=== PATIENT | male | born 1960 | race Caucasian/White ===

== ENCOUNTER 2017-10-03 13:10 | Inpatient (IN) | payer SELFPAY ==
[2017-10-03] MEDS ORDERED: MORPHINE SULFATE 10 MG/ML INJ IV ONE (14:16)
--- NOTE | 2017-10-03 14:18 | RADIOLOGY REPORT (SQ) ---
EXAM DESCRIPTION: RIBS RIGHT W/PA CHEST COMPLETED DATE/TIME: 10/03/2017 1:59 pm REASON FOR STUDY: fall with rib pain COMPARISON: None. TECHNIQUE: Frontal view of the chest and additional views of the right ribs acquired. NUMBER OF VIEWS: Four views LIMITATIONS: None. FINDINGS: FRONTAL CXR: No pneumothorax. No pleural effusion. No atelectasis or infiltrates. Nodul arity in the right lung with scarring in the right upper lobe. RIBS: There appear to be nondisplaced fractures of the right 5th, 6th, 7th, and 8th ribs. OTHER: No other significant finding. IMPRESSION: No pneumothorax. Rib fractures. Pulmonary findings as described. COMMENT: SITE OF TRAUMA/COMPLAINT MARKED/STAMP COMPLETED: No TECHNICAL DOCUMENTATION: JOB ID: [id number] [employer]- All Rights Reserved
[2017-10-03 14:19] LABS: ABSOLUTE BASOPHILS # (AUTO) 0.1 10^3/uL (0.0-0.2); ABSOLUTE EOSINOPHILS # (AUTO) 0.2 10^3/uL (0.0-0.6); ABSOLUTE LYMPHOCYTES (AUTO) 1.2 10^3/uL (0.5-4.7); ABSOLUTE MONOCYTES (AUTO) 1.8 10^3/uL (0.1-1.4); ABSOLUTE NEUT (AUTO) 21.1 10^3/uL (1.7-8.2); BASOPHILS % (AUTO) 0.5 % (0-2); EOSINOPHILS % (AUTO) 0.9 % (0-6); HEMOGLOBIN 15.9 g/dL (13.5-17.0); MEAN CORPUSCULAR HEMOGLOBIN 30.4 pg (27.0-33.4); MEAN CORPUSCULAR HGB CONC 33.8 g/dL (32.0-36.0); MEAN CORPUSCULAR VOLUME 90 fl (80-97); MONOCYTES % (AUTO) 7.5 % (3-13); PLATELET COUNT 653 10^3/uL (150-450); RED BLOOD COUNT 5.23 10^6/uL (4.35-5.55); RED CELL DISTRIBUTION WIDTH 16.6 % (11.5-14.0); SEGMENTED NEUTROPHILS % (AUTO) 86.1 % (42-78); TOTAL CELLS COUNTED % (AUTO) 100 %; WHITE BLOOD COUNT 24.5 10^3/uL (4.0-10.5)
[2017-10-03] MEDS ORDERED: HYDROMORPHONE HCL INJ/PF 2 MG/ML AMPULE IV ONE ×2 (14:51→16:55)
--- NOTE | 2017-10-03 14:54 | ER Document Report ---
ED General - General Chief Complaint: Fall Injury Stated Complaint: FALL/RIB PAIN Time Seen by Provider: 10/03/17 13:48 Mode of Arrival: Ambulatory Information source: Patient Notes: 57 yr old male presents with complaitns of right sided rib pain after a fall 5 days ago. pt notes difficulty breathing, productive cough. TRAVEL OUTSIDE OF THE [place] IN LAST 30 DAYS: No - HPI Onset: Last week Onset/Duration: Persistent Quality of pain: Sharp Severity: Moderate Pain Level: 2 Associated symptoms: Productive cough, Shortness of breath Exacerbated by: Deep breathing Relieved by: Denies Similar symptoms previously: No Recently seen / treated by doctor: No - Related Data Allergies/Adverse Reactions: No Known Allergies Allergy (Unverified 05/19/16 23:21) Home Medications: Current Home Medications No Home Medications 10/03/17 [History] Past Medical History - Social History Smoking Status: Current Every Day Smoker Cigarette use (# per day): Yes Chew tobacco use (# tins/day): No Smoking Education Provided: Yes - Patient counselled regarding cessation for 4 minutes Frequency of alcohol use: Occasional Drug Abuse: None Family History: Reviewed & Not Pertinent Patient has suicidal ideation: No Patient has homicidal ideation: No Renal/ Medical History: Denies: Hx Peritoneal Dialysis Past Surgical History: Reports: Hx Orthopedic Surgery - Ankle - Immunizations Immunizations up to date: No Hx Diphtheria, Pertussis, Tetanus Vaccination: No Review of Systems - Review of Systems Notes: REVIEW OF SYSTEMS: CONSTITUTIONAL : Denies fever, chills, or sweats. Denies recent illness. EENT: Denies eye, ear, throat, or mouth pain or symptoms. Denies nasal or sinus congestion or discharge. Denies throat, tongue, or mouth swelling or difficulty swallowing. CARDIOVASCULAR: Denies chest pain. Denies palpitations or racing or irregular heart beat. Denies ankle edema. RESPIRATORY: Admits to productive cough shortness of breath GASTROINTESTINAL: Denies abdominal pain or distention. Denies nausea, vomiting , or diarrhea. Denies blood in vomitus, stools, or per rectum. Denies black, tarry stools. Denies constipation. GENITOURINARY: Denies difficulty urinating, painful urination, burning, frequency, blood in urine, or discharge. MUSCULOSKELETAL: Denies back or neck pain or stiffness. Denies joint pain or swelling. SKIN: Denies rash, lesions or sores. HEMATOLOGIC : Denies easy bruising or bleeding. LYMPHATIC: Denies swollen, enlarged glands. NEUROLOGICAL: Denies confusion or altered mental status. Denies passing out or loss of consciousness. Denies dizziness or lightheadedness. Denies headache. Denies weakness or paralysis or loss of use of either side. Denies problems with gait or speech. Denies sensory loss, numbness, or tingling. Denies seizures. PSYCHIATRIC: Denies anxiety or stress. Denies depression, suicidal ideation, or homicidal ideation. ALL OTHER SYSTEMS REVIEWED AND NEGATIVE. Dictation was performed using [employer] voice recognition software PHYSICAL EXAMINATION: GENERAL: Well-appearing, well-nourished and in no acute distress. HEAD: Atraumatic, normocephalic. EYES: Pupils equal round and reactive to light, extraocular movements intact, sclera anicteric, conjunctiva are normal. ENT: Nares patent, oropharynx clear without exudates. Moist mucous membranes. NECK: Normal range of motion, supple without lymphadenopathy LUNGS: Coarse rhonchi all throughout HEART: Regular rate and rhythm without murmurs ABDOMEN: Soft, nontender, nondistended abdomen. No guarding, no rebound. No masses appreciated. Musculoskeletal: Normal range of motion, no pitting or edema. No cyanosis. NEUROLOGICAL: Cranial nerves grossly intact. Normal speech, normal gait. Normal sensory, motor exams PSYCH: Normal mood, normal affect. SKIN: Warm, Dry, normal turgor, no rashes or lesions noted. Physical Exam - Vital signs Vitals: Temp Pulse Resp BP Pulse Ox 98.1 F 125 H 20 153/102 H 96 10/03/17 13:17 10/03/17 13:17 10/03/17 13:17 10/03/17 13:17 10/03/17 13:17 Course - Re-evaluation Re-evalutation: 10/03/17 20:33 Patient's white count is noted to be significantly elevated 24.5, a chest x-ray was performed, x-rays consistent with fractures, I did send for CT which does note multiple fractures however is also a cavitary lesion as well as pneumonia. Patient started on antibiotics will admit, isolation precautions 10/03/17 20:34 - Vital Signs Vital signs: Temp Pulse Resp BP Pulse Ox 98.1 F 125 H 13 128/86 H 98 10/03/17 13:17 10/03/17 13:17 10/03/17 18:01 10/03/17 17:01 10/03/17 18:01 - Laboratory Result Diagrams: 10/03/17 14:10 10/03/17 14:10 Laboratory results interpreted by me: 10/03/17 10/03/17 14:10 14:10 WBC 24.5 H RDW 16.6 H Plt Count 653 H Seg Neutrophils % 86.1 H Lymphocytes % 5.0 L Absolute Neutrophils 21.1 H Absolute Monocytes 1.8 H BUN 23 H Alkaline Phosphatase 131 H - Diagnostic Test Radiology reviewed: Image reviewed, Reports reviewed Discharge - Discharge Clinical Impression: Ribs, multiple fractures Qualifiers: Encounter type: initial encounter Fracture type: closed Laterality: right Qualified Code(s): S22.41XA - Multiple fractures of ribs, right side, initial encounter for closed fracture Pneumonia Qualifiers: Pneumonia type: due to unspecified organism Laterality: right Lung location: lower lobe of lung Qualified Code(s): J18.1 - Lobar pneumonia, unspecified organism Condition: Fair Disposition: ADMITTED INPATIENT Admitting Provider: Hospitalist Unit Admitted: Telemetry
[2017-10-03 15:04] LABS: ALANINE AMINOTRANSFERASE 72 U/L (21-72); ALKALINE PHOSPHATASE 131 U/L (38-126); ANION GAP 14 (5-19); ASPARTATE AMINO TRANSFERASE 53 U/L (17-59); BILIRUBIN,DIRECT 0.3 mg/dL (0.0-0.4); BILIRUBIN,TOTAL 0.8 mg/dL (0.2-1.3); BLOOD UREA NITROGEN 23 mg/dL (7-20); CALCIUM 10.1 mg/dL (8.4-10.2); CARBON DIOXIDE 26 mmol/L (22-30); CHLORIDE 101 mmol/L (98-107); GLUCOSE 96 mg/dL (75-110); POTASSIUM 4.4 mmol/L (3.6-5.0); SODIUM 141.2 mmol/L (137-145); TOTAL PROTEIN 6.9 g/dL (6.3-8.2)
--- NOTE | 2017-10-03 16:22 | RADIOLOGY REPORT (SQ) ---
EXAM DESCRIPTION: CT CHEST WITH COMPLETED DATE/TIME: 10/03/2017 4:00 pm REASON FOR STUDY: fall rib innjury COMPARISON: Right rib detail films and PA chest 10/03/2017 TECHNIQUE: CT scan of the chest performed using helical scanning technique with dynamic intravenous contrast injection. Images reviewed with lung, soft tissue and bone windows. Reconstructed coronal and sagittal MPR images reviewed. All images stored on PACS. All CT scanners at this facility use dose modulation, iterative reconstruction, and/or weight based d osing when appropriate to reduce radiation dose to as low as reasonably achievable (ALARA). [facility]: Dose Right [facility]: CareDose [facility]: Dose Right [facility]: Teradose 4D [facility]: NextPage CONTRAST TYPE AND DOSE: contrast/concentration: Isovue 370.00 mg/ml; Total Contrast Delivered: 80.0 ml; Total Saline Delivered: 55.1 ml RENAL FUNCTION: Creatinine 0.65 RADIATION DOSE: CT Rad equipment meets quality standard of care and radiation dose reduction techniq ues were employed. CTDIvol: 5.0 mGy. DLP: 212 mGy-cm. . LIMITATIONS: None. FINDINGS: LUNGS AND PLEURA: There is patchy airspace disease in the right posterior lower lobe worri some for pulmonary contusion. This is deep to multiple posterior right lower rib fractures. No righ t-sided pneumothorax or pleural effusion. A thick walled irregular cavity is present at the right lung apex measuring about 6 cm in greatest cr aniocaudad diameter. There the arm multiple noncalcified nodules throughout the right upper lobe rig ht middle lobe and lingula. Multiple nodules are present in the superior segment right lower lobe, t he largest of which measures 3 cm diameter on coronal image 48. There is centrilobular emphysema upper lobe predominant. HILAR AND MEDIASTINAL STRUCTURES: No mediastinal adenopathy, no hilar adenopathy HEART AND VASCULAR STRUCTURES: The ascending aorta is 4 cm in diameter. Left ventricle thick walled, minimal aortic valve calcification. Correlate clinically for aortic stenosis and poststenotic ascen ding aortic dilatation. No CT evidence of thoracic aortic dissection or pulmonary embolus to the arjun n, or right or left pulmonary arteries. HARDWARE: None in the chest. UPPER ABDOMEN: No significant findings. Limited exam. THYROID AND OTHER SOFT TISSUES: No masses. No adenopathy. BONES: Acute nondisplaced posterior right through 11th rib fractures OTHER: Report called to Dr. Ferguson in the emergency room IMPRESSION: Acute right posterior 6th through 11th rib fractures. Adjacent right lower lobe airspac e disease likely pulmonary contusion. No pneumothorax or pleural effusion Thick walled cavitary lesion in the right lung apex with multiple other smaller cavitary and non cavi tary lung nodules bilaterally. Differential is ARJUN versus MTB versus sarcoid. Enlarged ascending thoracic aorta with thick wall left ventricle, question aortic stenosis Centrilobular emphysema in the upper lobes bilaterally TECHNICAL DOCUMENTATION: JOB ID: [id number] Quality ID # [id number]: Final reports with documentation of one or more dose reduction techniques (e.g., Au tomated exposure control, adjustment of the mA and/or kV according to patient size, use of iterative reconstruction technique) 2010 [employer]- All Rights Reserved
[2017-10-03] MEDS ORDERED: LEVOFLOXACIN 750 MG/D5W RTU 750 MG/150 ML RTUPB IV ONE (16:56)
[2017-10-03] MEDS ORDERED: NORMAL SALINE 1000 ML 1,000 ML IV PRN (17:08)
[2017-10-03] MEDS ORDERED: TUBERCULIN,PURIF.PROT.DERIV. 5 TU/0.1 ML TEST 1 ML VIAL ID ONE ×2 (18:30→19:00)
[2017-10-03] MEDS: MORPHINE SULFATE 10 MG/ML INJ IV PRN ×2 (19:09→23:34)
[2017-10-03] MEDS: OXYCODONE HCL IR 5 MG TABLET PO SCH (19:09)
[2017-10-03] MEDS: ACETAMINOPHEN 325 MG TABLET PO PRN (20:47)
[2017-10-03] MEDS: GABAPENTIN 300 MG CAPSULE PO SCH (23:33)
[2017-10-04] MEDS: OXYCODONE HCL IR 5 MG TABLET PO SCH ×4 (00:45→17:06)
[2017-10-04] MEDS: MORPHINE SULFATE 10 MG/ML INJ IV PRN ×4 (03:41→21:39)
[2017-10-04] MEDS: TRAMADOL HCL 50 MG TABLET PO SCH ×4 (04:00→21:39)
[2017-10-04] MEDS: LANSOPRAZOLE 30 MG TAB.RAP.DR PO SCH (05:27)
[2017-10-04] MEDS: GABAPENTIN 300 MG CAPSULE PO SCH ×3 (05:28→21:39)
[2017-10-04 06:27] LABS: ABSOLUTE BASOPHILS # (AUTO) 0.1 10^3/uL (0.0-0.2); ABSOLUTE EOSINOPHILS # (AUTO) 0.3 10^3/uL (0.0-0.6); ABSOLUTE LYMPHOCYTES (AUTO) 1.2 10^3/uL (0.5-4.7); ABSOLUTE MONOCYTES (AUTO) 1.6 10^3/uL (0.1-1.4); ABSOLUTE NEUT (AUTO) 14.2 10^3/uL (1.7-8.2); BASOPHILS % (AUTO) 0.3 % (0-2); EOSINOPHILS % (AUTO) 1.7 % (0-6); HEMATOCRIT 40.6 % (37.9-51.0); MEAN CORPUSCULAR HEMOGLOBIN 30.6 pg (27.0-33.4); MEAN CORPUSCULAR HGB CONC 33.6 g/dL (32.0-36.0); MEAN CORPUSCULAR VOLUME 91 fl (80-97); MONOCYTES % (AUTO) 9.4 % (3-13); PLATELET COUNT 537 10^3/uL (150-450); RED BLOOD COUNT 4.46 10^6/uL (4.35-5.55); RED CELL DISTRIBUTION WIDTH 16.7 % (11.5-14.0); SEGMENTED NEUTROPHILS % (AUTO) 81.6 % (42-78); TOTAL CELLS COUNTED % (AUTO) 100 %; WHITE BLOOD COUNT 17.3 10^3/uL (4.0-10.5)
[2017-10-04 06:35] LABS: HEMOGLOBIN 13.6 g/dL (13.5-17.0)
[2017-10-04 06:39] LABS: ANION GAP 8 (5-19); BLOOD UREA NITROGEN 13 mg/dL (7-20); CALCIUM 8.8 mg/dL (8.4-10.2); CARBON DIOXIDE 28 mmol/L (22-30); CHLORIDE 99 mmol/L (98-107); GLUCOSE 123 mg/dL (75-110); MAGNESIUM 1.6 mg/dL (1.6-2.3); SODIUM 135.1 mmol/L (137-145)
[2017-10-04 08:06] LABS: S. PNEUMONIAE AG NEGATIVE (NEGATIVE)
[2017-10-04] MEDS: LEVOFLOXACIN 750 MG/D5W RTU 750 MG/150 ML RTUPB IV SCH (17:06)
[2017-10-05] MEDS: OXYCODONE HCL IR 5 MG TABLET PO SCH ×4 (00:01→17:56)
[2017-10-05] MEDS: NORMAL SALINE 1000 ML 1,000 ML IV PRN (01:45)
[2017-10-05] MEDS: MORPHINE SULFATE 10 MG/ML INJ IV PRN ×4 (01:45→22:03)
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
[2017-10-05] MEDS: GABAPENTIN 300 MG CAPSULE PO SCH ×3 (05:54→22:03)
[2017-10-05] MEDS: LANSOPRAZOLE 30 MG TAB.RAP.DR PO SCH (05:54)
[2017-10-05 07:36] LABS: ABSOLUTE BASOPHILS # (AUTO) 0.1 10^3/uL (0.0-0.2); ABSOLUTE EOSINOPHILS # (AUTO) 0.3 10^3/uL (0.0-0.6); ABSOLUTE MONOCYTES (AUTO) 1.4 10^3/uL (0.1-1.4); ABSOLUTE NEUT (AUTO) 7.7 10^3/uL (1.7-8.2); BASOPHILS % (AUTO) 0.5 % (0-2); EOSINOPHILS % (AUTO) 3.1 % (0-6); HEMATOCRIT 38.1 % (37.9-51.0); LYMPHOCYTES % (AUTO) 9.7 % (13-45); MEAN CORPUSCULAR HEMOGLOBIN 30.9 pg (27.0-33.4); MEAN CORPUSCULAR HGB CONC 34.1 g/dL (32.0-36.0); MEAN CORPUSCULAR VOLUME 91 fl (80-97); MONOCYTES % (AUTO) 13.4 % (3-13); PLATELET COUNT 463 10^3/uL (150-450); RED CELL DISTRIBUTION WIDTH 16.5 % (11.5-14.0); SEGMENTED NEUTROPHILS % (AUTO) 73.3 % (42-78); TOTAL CELLS COUNTED % (AUTO) 100 %; WHITE BLOOD COUNT 10.5 10^3/uL (4.0-10.5)
[2017-10-05 08:05] LABS: ANION GAP 8 (5-19); BLOOD UREA NITROGEN 7 mg/dL (7-20); CALCIUM 8.4 mg/dL (8.4-10.2); CARBON DIOXIDE 29 mmol/L (22-30); CHLORIDE 100 mmol/L (98-107); GLUCOSE 88 mg/dL (75-110); POTASSIUM 3.6 mmol/L (3.6-5.0)
[2017-10-05] MEDS ORDERED: DIAZEPAM 2 MG TABLET PO SCH (10:00)
--- NOTE | 2017-10-05 11:28 | PDOC PROGRESS REPORT ---
Subjective Progress Note for:: 10/05/17 Subjective:: Pt states that he is doing ok. Nursing reports that pt told her he drinks a lot. Pt states that he wants to get out of here soon. Nursing states that pt' s PPD in Pending final read. Reason For Visit: PNEUMONIA, MULTIPLE RIB FRACTURES, LUNG NODULES Physical Exam Vital Signs: Temp Pulse Resp BP Pulse Ox 98.9 F 100 20 145/81 H 93 10/05/17 08:00 10/05/17 08:00 10/05/17 08:00 10/05/17 08:00 10/05/17 08:00 Intake & Output 10/04/17 10/05/17 10/06/17 06:59 06:59 06:59 Intake Total 948 2538 Output Total 350 1075 Balance 598 1463 Weight 47.1 kg 48.6 kg General appearance: PRESENT: no acute distress, cooperative, disheveled, thin Head exam: PRESENT: atraumatic, normocephalic Eye exam: PRESENT: conjunctival injection, EOMI Ear exam: PRESENT: normal external ear exam Mouth exam: PRESENT: moist, tongue midline Neck exam: ABSENT: carotid bruit, JVD, lymphadenopathy, thyromegaly Respiratory exam: PRESENT: other - + coarse breath sounds heard diffusely, No wheezing, no accessory muscle use. Cardiovascular exam: PRESENT: RRR. ABSENT: diastolic murmur, rubs, systolic murmur Pulses: PRESENT: normal dorsalis pedis pul Vascular exam: PRESENT: normal capillary refill GI/Abdominal exam: PRESENT: normal bowel sounds, soft. ABSENT: distended, guarding, mass, organolmegaly, rebound, tenderness Rectal exam: PRESENT: deferred Extremities exam: PRESENT: full ROM. ABSENT: calf tenderness, clubbing, pedal edema Neurological exam: PRESENT: alert, awake, oriented to person, oriented to place , oriented to time, oriented to situation, CN II-XII grossly intact. ABSENT: motor sensory deficit Psychiatric exam: PRESENT: flat affect, normal mood. ABSENT: homicidal ideation , suicidal ideation Skin exam: PRESENT: abrasion, other - pt with abrasions on face Results Laboratory Results: 10/05/17 07:09 10/05/17 07:09 10/05/17 10/05/17 07:09 07:09 WBC 10.5 RBC 4.20 L Hgb 13.0 L Hct 38.1 MCV 91 MCH 30.9 MCHC 34.1 RDW 16.5 H Plt Count 463 H Seg Neutrophils % 73.3 Lymphocytes % 9.7 L Monocytes % 13.4 H Eosinophils % 3.1 Basophils % 0.5 Absolute Neutrophils 7.7 Absolute Lymphocytes 1.0 Absolute Monocytes 1.4 Absolute Eosinophils 0.3 Absolute Basophils 0.1 Sodium 137.0 Potassium 3.6 Chloride 100 Carbon Dioxide 29 Anion Gap 8 BUN 7 Creatinine 0.47 L Est GFR ( Amer) > 60 Est GFR (Non-Af Amer) > 60 Glucose 88 Calcium 8.4 Magnesium 2.0 Impressions: Ribs w/Chest X-Ray 10/03/17 00:00 IMPRESSION: No pneumothorax. Rib fractures. Pulmonary findings as described. Chest CT 10/03/17 13:52 IMPRESSION: Acute right posterior 6th through 11th rib fractures. Adjacent right lower lobe airspace disease likely pulmonary contusion. No pneumothorax or pleural effusion Thick walled cavitary lesion in the right lung apex with multiple other smaller cavitary and non cavitary lung nodules bilaterally. Differential is ARJUN versus MTB versus sarcoid. Enlarged ascending thoracic aorta with thick wall left ventricle, question aortic stenosis Centrilobular emphysema in the upper lobes bilaterally Assessment & Plan - Diagnosis (1) Pulmonary cavitary lesion Is this a current diagnosis for this admission?: Yes Plan: Right lower lobe of Lung: Will continue current treatment plan. Pt's WBC are trending down. PPD pending. Pt's AFB's have been negative. (2) Pneumonia Qualifiers: Pneumonia type: due to unspecified organism Laterality: right Lung location: lower lobe of lung Qualified Code(s): J18.1 - Lobar pneumonia, unspecified organism Is this a current diagnosis for this admission?: Yes Plan: Will continue pt on current treatment. (3) Fall Is this a current diagnosis for this admission?: Yes Plan: Supportive care. Will have PT/OT evaluate pt. (4) Moderate protein-calorie malnutrition Is this a current diagnosis for this admission?: Yes Plan: Will continue supplemental drinks and encourage better PO intake. Will check Phos and Magnesium. (5) Alcohol use Is this a current diagnosis for this admission?: Yes Plan: Ativan PRN. Will place on Thiamine and folate. Will check Phos level due to malnutrition. (6) Hyponatremia Is this a current diagnosis for this admission?: Yes Plan: resolved. (7) Ribs, multiple fractures Qualifiers: Encounter type: initial encounter Fracture type: closed Laterality: right Qualified Code(s): S22.41XA - Multiple fractures of ribs, right side, initial encounter for closed fracture Is this a current diagnosis for this admission?: Yes Plan: Supportive care. Recommended abd electric organ checker but pt states that he has no and it did not help. (8) Tobacco abuse Is this a current diagnosis for this admission?: Yes Plan: Nicotine patch - Time Time Spent with patient: 15-24 minutes
[2017-10-05] MEDS: MAGNESIUM OXIDE 400 MG TABLET PO SCH ×2 (11:42→17:56)
[2017-10-05] MEDS: NICOTINE 21 MG/24 HR PATCH.TD24 TD SCH (11:43)
[2017-10-05] MEDS ORDERED: FOLIC ACID 1 MG TABLET PO ONE (13:00)
[2017-10-05] MEDS ORDERED: THIAMINE HCL 100 MG TABLET PO ONE (13:00)
--- NOTE | 2017-10-05 14:12 | PDOC PROGRESS REPORT ---
Subjective Progress Note for:: 10/04/17 Subjective:: Patient presented with right rib pain found to have multiple rib fractures which he sustained after a fall. Patient being treated for pneumonia. Patient with R apex cavity lesion for which TB is being ruled out. Patient states he is doing alright but didn't want to speak. Reason For Visit: PNEUMONIA, MULTIPLE RIB FRACTURES, LUNG NODULES Physical Exam Vital Signs: Temp Pulse Resp BP Pulse Ox 98.0 F 100 18 126/89 H 92 10/04/17 19:59 10/04/17 19:59 10/04/17 19:59 10/04/17 19:59 10/04/17 19:59 Intake & Output 10/03/17 10/04/17 10/05/17 06:59 06:59 06:59 Intake Total 948 1464 Output Total 350 600 Balance 598 864 Weight 47.1 kg General appearance: PRESENT: no acute distress, disheveled, thin Head exam: PRESENT: normocephalic Eye exam: PRESENT: EOMI. ABSENT: scleral icterus Neck exam: ABSENT: carotid bruit, JVD, lymphadenopathy, thyromegaly Respiratory exam: PRESENT: clear to auscultation roz, decreased breath sounds. ABSENT: rales, rhonchi, unlabored, wheezes Cardiovascular exam: PRESENT: RRR. ABSENT: diastolic murmur, rubs, systolic murmur Vascular exam: PRESENT: normal capillary refill GI/Abdominal exam: PRESENT: normal bowel sounds, soft. ABSENT: distended, guarding, mass, organolmegaly, rebound, tenderness Rectal exam: PRESENT: deferred Extremities exam: PRESENT: full ROM. ABSENT: calf tenderness, clubbing, pedal edema Neurological exam: PRESENT: alert, awake, oriented to person, oriented to place , oriented to time, oriented to situation, CN II-XII grossly intact. ABSENT: motor sensory deficit Psychiatric exam: PRESENT: appropriate affect, normal mood. ABSENT: homicidal ideation, suicidal ideation Skin exam: PRESENT: dry, intact, warm. ABSENT: cyanosis, rash Results Laboratory Results: 10/04/17 05:49 10/04/17 05:49 10/04/17 10/04/17 05:49 05:49 WBC 17.3 H RBC 4.46 Hgb 13.6 D Hct 40.6 MCV 91 MCH 30.6 MCHC 33.6 RDW 16.7 H Plt Count 537 H Seg Neutrophils % 81.6 H Lymphocytes % 7.0 L Monocytes % 9.4 Eosinophils % 1.7 Basophils % 0.3 Absolute Neutrophils 14.2 H Absolute Lymphocytes 1.2 Absolute Monocytes 1.6 H Absolute Eosinophils 0.3 Absolute Basophils 0.1 Sodium 135.1 L Potassium 4.0 Chloride 99 Carbon Dioxide 28 Anion Gap 8 BUN 13 Creatinine 0.52 Est GFR ( Amer) > 60 Est GFR (Non-Af Amer) > 60 Glucose 123 H Calcium 8.8 Magnesium 1.6 Impressions: Ribs w/Chest X-Ray 10/03/17 00:00 IMPRESSION: No pneumothorax. Rib fractures. Pulmonary findings as described. Chest CT 10/03/17 13:52 IMPRESSION: Acute right posterior 6th through 11th rib fractures. Adjacent right lower lobe airspace disease likely pulmonary contusion. No pneumothorax or pleural effusion Thick walled cavitary lesion in the right lung apex with multiple other smaller cavitary and non cavitary lung nodules bilaterally. Differential is ARJUN versus MTB versus sarcoid. Enlarged ascending thoracic aorta with thick wall left ventricle, question aortic stenosis Centrilobular emphysema in the upper lobes bilaterally Assessment & Plan - Diagnosis (1) Hyponatremia Plan: Secondary to infection and or dehydration. Start on NS and follow. 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 Continue valium TID. Watch for signs of withdrawal. (3) Pneumonia Qualifiers: Pneumonia type: due to unspecified organism Laterality: right Lung location: lower lobe of lung Qualified Code(s): J18.1 - Lobar pneumonia, unspecified organism Plan: Right LL pneumonia was thought to be a pulmonary contusion however patient has leukocytosis 24,000. Leukocytosis trending down. Continue levaquin and follow WBC. (4) Pulmonary cavitary lesion Is this a current diagnosis for this admission?: Yes Plan: TB is being ruled out with 3 AFBs. PPD was placed. Patient history not consistent with TB but has to be ruled out. Patient also has lung nodules on the right. Patient seen by Dr. Tucker. Dr. Tucker did discuss possible bronch with patient. He would like patient to follow up as out patient. (5) Ribs, multiple fractures Qualifiers: Encounter type: initial encounter Fracture type: closed Laterality: right Qualified Code(s): S22.41XA - Multiple fractures of ribs, right side, initial encounter for closed fracture Is this a current diagnosis for this admission?: Yes Plan: Secondary to a fall patient fractured his right ribs 6-11. Informed patient the it will be painful and will take time to feel better. Continue morphine, NSAIDS and gabapentin. (6) Tobacco abuse Is this a current diagnosis for this admission?: Yes Plan: Counseling on smoking cessation and nicotine patch. (7) Thrombocytosis Is this a current diagnosis for this admission?: Yes Plan: Due to infection. Trending down. Will continue to monitor. - Time Time Spent with patient: 15-24 minutes Anticipated discharge: Home with Homehealth Within: Other - Inpatient Certification Medical Necessity: Need for Pain Control, Need for IV Antibiotics
[2017-10-05] MEDS: DIAZEPAM 2 MG TABLET PO SCH ×2 (14:20→22:03)
--- NOTE | 2017-10-05 16:43 | PDOC CONSULTATION ---
Consultation Consult Date: 10/04/17 Attending physician:: EMMETT ROSE Consult reason:: Rib fractures/dyspnea History of Present Illness Admission Date/PCP: 10/03/17 17:32 History of Present Illness: VICTORINO HENRIQUEZ is a 57 year old male with no know medical history as he does not follow with a doctor. Patient states that on FridaySeptember 28, he was walking outside down the steps which were wet. Patient slipped and fell. Patient immediately felt pain but did not come to the hospital immediately because he thought the pain would go away. The pain did not subside and he subsequently presented to the emergency room for evaluation. At that time was found that he had multiple rib fractures a right lower lobe scattered infiltrate that was suspicious of a pulmonary contusion paraseptal emphysema with some thick wall cyst it was felt that he may be a candidate for MTB or ARJUN. He denies nausea vomiting fevers chills rhinorrhea sore throat chest pain or edema. He denies shortness of breath or dyspnea on exertion really has a cough and he denies any hemoptysis his PPD status is unknown. No history of chronic lung disease as a child or adolescent. He admits to exposure to large amounts of smoke passively as a child. He is self smoked one half packs a day for the last 40 years and smoked up until the time of admission. 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 He has no pets denies any recent travel. He denies angina-like chest pain sleeps on one pillow no PND rare nocturnal cough no edema. He is unaware of any snoring, admits to restless sleep, nocturia 3, unrestful sleep and excessive daytime somnolence. Portions of this note were dictated during [facility] natural speaking voice recognition software. Variations in spelling and tvocabulary are possible and unintentional. Please notify the author if any discrepancies are noted.. Past Medical History Cardiac Medical History: Denies: Atrial Fibrillation, Congestive Heart Failure, Coronary Artery Disease, DVT, Myocardial Infarction, Heart Murmur Pulmonary Medical History: Denies: Asthma, Bronchitis, Intubation, Respiratory Failure EENT Medical History: Denies: Ears, Nose, Throat Neurological Medical History: Denies: Multiple Sclerosis, Seizures Endocrine Medical History: Denies: Diabetes Mellitus Type 1, Gestational Diabetes, Hyperthyroidism, Hypothyroidism Renal/ Medical History: Denies: Nephrolithiasis Malignancy Medical History: Reports: None GI Medical History: Reports: Gastroesophageal Reflux Disease Denies: Crohn's Disease, Hepatitis, Ulcerative Colitis Musculoskeltal Medical History: Denies: Fibromyalgia Skin Medical History: Denies: Psoriasis Psychiatric Medical History: Reports: Alcohol Dependency, Depression, Tobacco Dependency Traumatic Medical History: Denies: Traumatic Brain Injury Hematology: Denies: Sickle Cell Disease, Bleeding Tendencies Infectious Medical History: Denies: Hepatitis B, Hepatitis C Past Surgical History Past Surgical History: Reports: Orthopedic Surgery - Ankle Social History Information Source: Patient, [facility] Records Smoking Status: Current Every Day Smoker Cigarettes Packs Per Day: 10 Number of Years Smokin Last Time Smoked: 10/03/2017 Passive smoke exposure as: Both Frequency of Alcohol Use: Social Drugs: Marijuana Hx Prescription Drug Abuse: No Do you have pets?: No Have you had any respiratory illnesses as a child?: No Have you been exposed to any sick contacts recently?: No Have you had any recent respiratory illnesses?: No Have you travelled outside of [place] in the past 12 months?: No - Advance Directive Resuscitation Status: Full Code Family History Family History: Hypertension, Malignancy Parental Family History Reviewed: Yes Children Family History Reviewed: Yes Sibling(s) Family History Reviewed.: Yes Medication/Allergy Home Medications: No Home Medications 10/03/17 Allergies/Adverse Reactions: No Known Allergies Allergy (Unverified 05/19/16 23:21) Review of Systems Constitutional: ABSENT: anorexia, chills, fever(s), night sweats, weight gain, weight loss Eyes: ABSENT: visual disturbances Ears: ABSENT: hearing changes Nose, Mouth, and Throat: ABSENT: mouth pain, sore throat Cardiovascular: PRESENT: dyspnea on exertion. ABSENT: chest pain, edema, orthropnea, palpitations Respiratory: ABSENT: cough, hemoptysis Gastrointestinal: PRESENT: constipation, dysphagia. ABSENT: abdominal pain, bloating, coffee ground emesis, diarrhea, heartburn, hematemesis, hematochezia, melena, nausea, vomiting Genitourinary: PRESENT: nocturia. ABSENT: difficulty urinating, dysuria, hematuria Musculoskeletal: ABSENT: deformity, joint swelling Integumentary: ABSENT: pruritus, rash Neurological: ABSENT: abnormal gait, abnormal movements, abnormal speech, confusion, convulsions, dizziness, focal weakness, frequent falls, lack of coordination, memory loss Psychiatric: ABSENT: hallucinations, homidical ideation, suicidal ideation Endocrine: ABSENT: cold intolerance, flushing, heat intolerance, menstrual abnormalities, polydipsia, polyuria Hematologic/Lymphatic: ABSENT: easy bruising Physical Exam Vital Signs: Temp Pulse Resp BP Pulse Ox 98.1 F 100 16 132/74 H 94 10/04/17 07:48 10/04/17 07:48 10/04/17 07:48 10/04/17 07:48 10/04/17 07:48 Intake & Output 10/03/17 10/04/17 10/05/17 06:59 06:59 06:59 Intake Total 948 Output Total 350 Balance 598 Weight 47.1 kg General appearance: PRESENT: no acute distress, cooperative, disheveled, thin, well-developed. ABSENT: hard of hearing, mild distress, morbidly obese, obese, severe distress Head exam: PRESENT: atraumatic, normocephalic Eye exam: PRESENT: conjunctiva pale, EOMI. ABSENT: conjunctival injection, conjunctiva pink, nystagmus, periorbital swelling, scleral icterus Mouth exam: PRESENT: dry mucosa, neck supple, tongue midline. ABSENT: laceration, moist Teeth exam: PRESENT: poor dentation Neck exam: ABSENT: carotid bruit, JVD, lymphadenopathy, thyromegaly, tracheal deviation, tracheostomy Respiratory exam: PRESENT: decreased breath sounds, prolonged expiratory phas, rales, rhonchi, symmetrical, unlabored, wheezes. ABSENT: accessory muscle use, chest wall tenderness, clear to auscultation roz, crackles, retraction, stridor , tachypnea Cardiovascular exam: PRESENT: RRR, +S1, +S2. ABSENT: irregular rhythm, rubs Pulses: PRESENT: normal radial pulses GI/Abdominal exam: PRESENT: normal bowel sounds, soft. ABSENT: distended, guarding, mass, organolmegaly, rebound, tenderness Extremities exam: ABSENT: clubbing, joint swelling Musculoskeletal exam: ABSENT: deformity, dislocation Neurological exam: PRESENT: alert, awake Psychiatric exam: PRESENT: flat affect Skin exam: PRESENT: dry, warm Results Laboratory Results: 10/04/17 05:49 10/04/17 05:49 10/04/17 10/04/17 05:49 05:49 WBC 17.3 H RBC 4.46 Hgb 13.6 D Hct 40.6 MCV 91 MCH 30.6 MCHC 33.6 RDW 16.7 H Plt Count 537 H Seg Neutrophils % 81.6 H Lymphocytes % 7.0 L Monocytes % 9.4 Eosinophils % 1.7 Basophils % 0.3 Absolute Neutrophils 14.2 H Absolute Lymphocytes 1.2 Absolute Monocytes 1.6 H Absolute Eosinophils 0.3 Absolute Basophils 0.1 Sodium 135.1 L Potassium 4.0 Chloride 99 Carbon Dioxide 28 Anion Gap 8 BUN 13 Creatinine 0.52 Est GFR ( Amer) > 60 Est GFR (Non-Af Amer) > 60 Glucose 123 H Calcium 8.8 Magnesium 1.6 Impressions: Ribs w/Chest X-Ray 10/03/17 00:00 IMPRESSION: No pneumothorax. Rib fractures. Pulmonary findings as described. Chest CT 10/03/17 13:52 IMPRESSION: Acute right posterior 6th through 11th rib fractures. Adjacent right lower lobe airspace disease likely pulmonary contusion. No pneumothorax or pleural effusion Thick walled cavitary lesion in the right lung apex with multiple other smaller cavitary and non cavitary lung nodules bilaterally. Differential is ARJUN versus MTB versus sarcoid. Enlarged ascending thoracic aorta with thick wall left ventricle, question aortic stenosis Centrilobular emphysema in the upper lobes bilaterally Assessment & Plan - Diagnosis (1) Moderate protein-calorie malnutrition Is this a current diagnosis for this admission?: Yes Plan: Seems to be consistent patient's living situation (2) Pulmonary cavitary lesion Is this a current diagnosis for this admission?: Yes Plan: Precautions regarding TBC and ARJUN however this will most likely cavitary lesions that are resulted paraseptal emphysema of the lesions and infiltrates in the right base closely he has not been incarcerated for the last 2-3 years (3) Ribs, multiple fractures Qualifiers: Encounter type: initial encounter Fracture type: closed Laterality: right Qualified Code(s): S22.41XA - Multiple fractures of ribs, right side, initial encounter for closed fracture Is this a current diagnosis for this admission?: Yes Plan: Supportive care
[2017-10-05] MEDS: LEVOFLOXACIN 750 MG/D5W RTU 750 MG/150 ML RTUPB IV SCH (17:56)
[2017-10-06] MEDS: OXYCODONE HCL IR 5 MG TABLET PO SCH ×5 (00:27→23:58)
[2017-10-06] MEDS: NORMAL SALINE 1000 ML 1,000 ML IV PRN ×2 (02:19→22:29)
[2017-10-06] MEDS: MORPHINE SULFATE 10 MG/ML INJ IV PRN ×4 (02:19→22:27)
[2017-10-06] MEDS: LANSOPRAZOLE 30 MG TAB.RAP.DR PO SCH (05:53)
[2017-10-06] MEDS: DIAZEPAM 2 MG TABLET PO SCH ×3 (05:53→22:07)
[2017-10-06] MEDS: GABAPENTIN 300 MG CAPSULE PO SCH ×3 (05:53→22:07)
[2017-10-06 08:21] LABS: ABSOLUTE BASOPHILS # (AUTO) 0.1 10^3/uL (0.0-0.2); ABSOLUTE EOSINOPHILS # (AUTO) 0.3 10^3/uL (0.0-0.6); ABSOLUTE LYMPHOCYTES (AUTO) 1.2 10^3/uL (0.5-4.7); ABSOLUTE MONOCYTES (AUTO) 1.4 10^3/uL (0.1-1.4); ABSOLUTE NEUT (AUTO) 5.2 10^3/uL (1.7-8.2); HEMOGLOBIN 12.2 g/dL (13.5-17.0); LYMPHOCYTES % (AUTO) 14.2 % (13-45); MEAN CORPUSCULAR HEMOGLOBIN 30.8 pg (27.0-33.4); MEAN CORPUSCULAR VOLUME 91 fl (80-97); MONOCYTES % (AUTO) 17.3 % (3-13); PLATELET COUNT 532 10^3/uL (150-450); RED BLOOD COUNT 3.97 10^6/uL (4.35-5.55); RED CELL DISTRIBUTION WIDTH 16.2 % (11.5-14.0); SEGMENTED NEUTROPHILS % (AUTO) 63.5 % (42-78); TOTAL CELLS COUNTED % (AUTO) 100 %; WHITE BLOOD COUNT 8.2 10^3/uL (4.0-10.5)
[2017-10-06 08:40] LABS: ANION GAP 8 (5-19); BLOOD UREA NITROGEN 7 mg/dL (7-20); CALCIUM 8.5 mg/dL (8.4-10.2); CARBON DIOXIDE 31 mmol/L (22-30); CHLORIDE 99 mmol/L (98-107); GLUCOSE 89 mg/dL (75-110); MAGNESIUM 2.1 mg/dL (1.6-2.3); PHOSPHORUS 2.8 mg/dL (2.5-4.5); SODIUM 137.6 mmol/L (137-145)
[2017-10-06] MEDS: MAGNESIUM OXIDE 400 MG TABLET PO SCH ×2 (10:59→18:30)
[2017-10-06] MEDS: THIAMINE HCL 100 MG TABLET PO SCH (10:59)
[2017-10-06] MEDS: FOLIC ACID 1 MG TABLET PO SCH (10:59)
[2017-10-06] MEDS: MULTIVITAMIN TABLET PO SCH (10:59)
[2017-10-06] MEDS: NICOTINE 21 MG/24 HR PATCH.TD24 TD SCH (11:00)
--- NOTE | 2017-10-06 12:56 | PDOC PROGRESS REPORT ---
Subjective Progress Note for:: 10/06/17 Subjective:: Awake without complaint Reason For Visit: PNEUMONIA, MULTIPLE RIB FRACTURES, LUNG NODULES Physical Exam Vital Signs: Temp Pulse Resp BP Pulse Ox 98.4 F 107 H 20 156/95 H 96 10/06/17 07:20 10/06/17 07:20 10/06/17 07:20 10/06/17 07:20 10/06/17 08:00 Intake & Output 10/05/17 10/06/17 10/07/17 06:59 06:59 06:59 Intake Total 2538 4417 Output Total 1075 2125 Balance 1463 2292 Weight 48.6 kg 47.8 kg General appearance: PRESENT: no acute distress, cooperative, mild distress, thin , well-developed. ABSENT: disheveled, hard of hearing, morbidly obese, obese, severe distress Head exam: PRESENT: normocephalic Eye exam: PRESENT: conjunctiva pale, EOMI. ABSENT: conjunctival injection, conjunctiva pink, nystagmus, periorbital swelling, scleral icterus Mouth exam: PRESENT: moist, neck supple, tongue midline. ABSENT: dry mucosa, laceration Neck exam: ABSENT: carotid bruit, JVD, lymphadenopathy, thyromegaly, tracheal deviation, tracheostomy Respiratory exam: PRESENT: decreased breath sounds, prolonged expiratory phas, rales, rhonchi, symmetrical, unlabored, wheezes. ABSENT: accessory muscle use, chest wall tenderness, clear to auscultation roz, crackles, retraction, stridor , tachypnea Cardiovascular exam: PRESENT: RRR, +S1, +S2. ABSENT: irregular rhythm, rubs GI/Abdominal exam: PRESENT: normal bowel sounds, soft. ABSENT: distended, guarding, mass, organolmegaly, rebound, tenderness Gentrourinary exam: PRESENT: indwelling catheter Extremities exam: ABSENT: clubbing, joint swelling Musculoskeletal exam: ABSENT: deformity, dislocation Neurological exam: PRESENT: alert, awake Psychiatric exam: PRESENT: flat affect Skin exam: PRESENT: dry, warm Results Laboratory Results: 10/06/17 08:02 10/06/17 08:02 10/06/17 10/06/17 08:02 08:02 WBC 8.2 RBC 3.97 L Hgb 12.2 L Hct 36.0 L MCV 91 MCH 30.8 MCHC 34.0 RDW 16.2 H Plt Count 532 H Seg Neutrophils % 63.5 Lymphocytes % 14.2 Monocytes % 17.3 H Eosinophils % 4.0 Basophils % 1.0 Absolute Neutrophils 5.2 Absolute Lymphocytes 1.2 Absolute Monocytes 1.4 Absolute Eosinophils 0.3 Absolute Basophils 0.1 Sodium 137.6 Potassium 4.0 Chloride 99 Carbon Dioxide 31 H Anion Gap 8 BUN 7 Creatinine 0.46 L Est GFR ( Amer) > 60 Est GFR (Non-Af Amer) > 60 Glucose 89 Calcium 8.5 Phosphorus 2.8 Magnesium 2.1 Impressions: Ribs w/Chest X-Ray 10/03/17 00:00 IMPRESSION: No pneumothorax. Rib fractures. Pulmonary findings as described. Chest CT 10/03/17 13:52 IMPRESSION: Acute right posterior 6th through 11th rib fractures. Adjacent right lower lobe airspace disease likely pulmonary contusion. No pneumothorax or pleural effusion Thick walled cavitary lesion in the right lung apex with multiple other smaller cavitary and non cavitary lung nodules bilaterally. Differential is ARJUN versus MTB versus sarcoid. Enlarged ascending thoracic aorta with thick wall left ventricle, question aortic stenosis Centrilobular emphysema in the upper lobes bilaterally Assessment & Plan - Diagnosis (1) Moderate protein-calorie malnutrition Is this a current diagnosis for this admission?: Yes Plan: Seems to be consistent patient's living situation (2) Pulmonary cavitary lesion Is this a current diagnosis for this admission?: Yes Plan: Thus far negative AFBs no hemoptysis,PPD has been applied (3) Ribs, multiple fractures Qualifiers: Encounter type: initial encounter Fracture type: closed Laterality: right Qualified Code(s): S22.41XA - Multiple fractures of ribs, right side, initial encounter for closed fracture Is this a current diagnosis for this admission?: Yes Plan: Still has inspiratory chest pain as well as tenderness to palpation
--- NOTE | 2017-10-06 14:00 | PDOC PROGRESS REPORT ---
Subjective Progress Note for:: 10/06/17 Subjective:: Pt was seen earlier this morning. Pt states that he is feeling better today. Pt states that he is eating well. Reason For Visit: PNEUMONIA, MULTIPLE RIB FRACTURES, LUNG NODULES Physical Exam Vital Signs: Temp Pulse Resp BP Pulse Ox 97.9 F 111 H 20 144/85 H 95 10/06/17 12:17 10/06/17 12:17 10/06/17 12:17 10/06/17 12:17 10/06/17 12:17 Intake & Output 10/05/17 10/06/17 10/07/17 06:59 06:59 06:59 Intake Total 2538 4417 236 Output Total 1075 2125 1300 Balance 1463 2292 -1064 Weight 48.6 kg 47.8 kg General appearance: PRESENT: no acute distress, thin, other - watching TV Head exam: PRESENT: atraumatic, normocephalic Eye exam: PRESENT: conjunctiva pink, EOMI. ABSENT: scleral icterus Ear exam: PRESENT: normal external ear exam Mouth exam: PRESENT: moist, tongue midline Neck exam: ABSENT: carotid bruit, JVD, lymphadenopathy, thyromegaly Respiratory exam: PRESENT: other - Good breath sounds heard anteriorly, + diminished breath sounds at bases, Cardiovascular exam: PRESENT: RRR. ABSENT: diastolic murmur, rubs, systolic murmur Pulses: PRESENT: normal dorsalis pedis pul Vascular exam: PRESENT: normal capillary refill GI/Abdominal exam: PRESENT: normal bowel sounds, soft. ABSENT: distended, guarding, mass, organolmegaly, rebound, tenderness Rectal exam: PRESENT: deferred Extremities exam: PRESENT: full ROM. ABSENT: calf tenderness, clubbing, pedal edema Musculoskeletal exam: PRESENT: full ROM Neurological exam: PRESENT: alert, awake, oriented to person, oriented to place , oriented to time, oriented to situation, CN II-XII grossly intact. ABSENT: motor sensory deficit Psychiatric exam: PRESENT: appropriate affect, normal mood. ABSENT: homicidal ideation, suicidal ideation Skin exam: PRESENT: dry, intact, warm. ABSENT: cyanosis, rash Results Laboratory Results: 10/06/17 08:02 10/06/17 08:02 10/06/17 10/06/17 08:02 08:02 WBC 8.2 RBC 3.97 L Hgb 12.2 L Hct 36.0 L MCV 91 MCH 30.8 MCHC 34.0 RDW 16.2 H Plt Count 532 H Seg Neutrophils % 63.5 Lymphocytes % 14.2 Monocytes % 17.3 H Eosinophils % 4.0 Basophils % 1.0 Absolute Neutrophils 5.2 Absolute Lymphocytes 1.2 Absolute Monocytes 1.4 Absolute Eosinophils 0.3 Absolute Basophils 0.1 Sodium 137.6 Potassium 4.0 Chloride 99 Carbon Dioxide 31 H Anion Gap 8 BUN 7 Creatinine 0.46 L Est GFR ( Amer) > 60 Est GFR (Non-Af Amer) > 60 Glucose 89 Calcium 8.5 Phosphorus 2.8 Magnesium 2.1 Impressions: Ribs w/Chest X-Ray 10/03/17 00:00 IMPRESSION: No pneumothorax. Rib fractures. Pulmonary findings as described. Chest CT 10/03/17 13:52 IMPRESSION: Acute right posterior 6th through 11th rib fractures. Adjacent right lower lobe airspace disease likely pulmonary contusion. No pneumothorax or pleural effusion Thick walled cavitary lesion in the right lung apex with multiple other smaller cavitary and non cavitary lung nodules bilaterally. Differential is ARJUN versus MTB versus sarcoid. Enlarged ascending thoracic aorta with thick wall left ventricle, question aortic stenosis Centrilobular emphysema in the upper lobes bilaterally Assessment & Plan - Diagnosis (1) Pulmonary cavitary lesion Is this a current diagnosis for this admission?: Yes Plan: Right lower lobe of Lung Streptococcus Pneumoniae: Will continue Levofloxacin. Pt's WBC are trending down. Pt's AFB's have been negative. (2) Pneumonia Qualifiers: Pneumonia type: due to unspecified organism Laterality: right Lung location: lower lobe of lung Qualified Code(s): J18.1 - Lobar pneumonia, unspecified organism Is this a current diagnosis for this admission?: Yes Plan: Streptococcus Pneumonia: Will continue Levaquin. (3) Fall Is this a current diagnosis for this admission?: Yes Plan: Supportive care. PT/OT evaluate pt. (4) Moderate protein-calorie malnutrition Is this a current diagnosis for this admission?: Yes Plan: Will continue supplemental drinks and encourage better PO intake. (5) Alcohol use Is this a current diagnosis for this admission?: Yes Plan: Ativan PRN. Thiamine and folate. (6) Hyponatremia Is this a current diagnosis for this admission?: Yes Plan: resolved. (7) Ribs, multiple fractures Qualifiers: Encounter type: initial encounter Fracture type: closed Laterality: right Qualified Code(s): S22.41XA - Multiple fractures of ribs, right side, initial encounter for closed fracture Is this a current diagnosis for this admission?: Yes Plan: Supportive care. Recommended abd green coffee blender but pt states that he has one and it did not help. (8) Tobacco abuse Is this a current diagnosis for this admission?: Yes Plan: Nicotine patch - Time Time Spent with patient: 15-24 minutes Anticipated discharge: Home - Most likely Discharge tomorrow.
[2017-10-06] MEDS: LEVOFLOXACIN 750 MG TABLET PO SCH (22:07)
[2017-10-07] MEDS: MORPHINE SULFATE 10 MG/ML INJ IV PRN ×5 (02:37→20:20)
[2017-10-07] MEDS: DIAZEPAM 2 MG TABLET PO SCH ×3 (05:06→21:34)
[2017-10-07] MEDS: GABAPENTIN 300 MG CAPSULE PO SCH ×3 (05:06→21:34)
[2017-10-07] MEDS: OXYCODONE HCL IR 5 MG TABLET PO SCH ×4 (05:06→23:04)
[2017-10-07] MEDS: LANSOPRAZOLE 30 MG TAB.RAP.DR PO SCH (05:06)
[2017-10-07] MEDS: MULTIVITAMIN TABLET PO SCH (09:22)
[2017-10-07] MEDS: THIAMINE HCL 100 MG TABLET PO SCH (09:22)
[2017-10-07] MEDS: FOLIC ACID 1 MG TABLET PO SCH (09:22)
[2017-10-07] MEDS: MAGNESIUM OXIDE 400 MG TABLET PO SCH ×2 (09:22→18:01)
[2017-10-07] MEDS: NICOTINE 21 MG/24 HR PATCH.TD24 TD SCH (09:22)
[2017-10-07] MEDS: NORMAL SALINE 1000 ML 1,000 ML IV PRN ×2 (09:34→20:20)
--- NOTE | 2017-10-07 11:12 | PDOC PROGRESS REPORT ---
Subjective Progress Note for:: 10/07/17 Subjective:: Awake without complaint Reason For Visit: PNEUMONIA, MULTIPLE RIB FRACTURES, LUNG NODULES Physical Exam Vital Signs: Temp Pulse Resp BP Pulse Ox 98.3 F 95 17 111/58 L 91 L 10/07/17 08:10 10/07/17 08:10 10/07/17 08:10 10/07/17 08:10 10/07/17 08:10 Intake & Output 10/06/17 10/07/17 10/08/17 06:59 06:59 06:59 Intake Total 4417 3026 Output Total 2125 1300 Balance 2292 1726 Weight 47.8 kg 47.9 kg General appearance: PRESENT: no acute distress, cooperative, disheveled, mild distress, well-developed, well-nourished. ABSENT: hard of hearing, morbidly obese, obese, severe distress Head exam: PRESENT: normocephalic, other - Laceration of her right eye Eye exam: PRESENT: conjunctiva pale, EOMI. ABSENT: conjunctival injection, conjunctiva pink, nystagmus, periorbital swelling, scleral icterus Mouth exam: PRESENT: dry mucosa, neck supple, tongue midline. ABSENT: laceration, moist Teeth exam: PRESENT: poor dentation Neck exam: ABSENT: carotid bruit, JVD, lymphadenopathy, thyromegaly, tracheal deviation, tracheostomy Respiratory exam: PRESENT: chest wall tenderness, decreased breath sounds, prolonged expiratory phas, rhonchi, symmetrical, unlabored. ABSENT: accessory muscle use, clear to auscultation roz, crackles, rales, retraction, stridor, tachypnea Cardiovascular exam: PRESENT: RRR, +S1, +S2. ABSENT: irregular rhythm, rubs Pulses: PRESENT: normal radial pulses GI/Abdominal exam: PRESENT: normal bowel sounds, soft. ABSENT: distended, guarding, mass, organolmegaly, rebound, tenderness Extremities exam: ABSENT: clubbing, joint swelling Musculoskeletal exam: PRESENT: ambulatory. ABSENT: deformity, dislocation Neurological exam: PRESENT: awake Psychiatric exam: PRESENT: flat affect Skin exam: PRESENT: dry, warm Results Laboratory Results: 10/06/17 08:02 10/06/17 08:02 10/03/17 19:15 Sputum Gram Stain - Final Impressions: Ribs w/Chest X-Ray 10/03/17 00:00 IMPRESSION: No pneumothorax. Rib fractures. Pulmonary findings as described. Chest CT 10/03/17 13:52 IMPRESSION: Acute right posterior 6th through 11th rib fractures. Adjacent right lower lobe airspace disease likely pulmonary contusion. No pneumothorax or pleural effusion Thick walled cavitary lesion in the right lung apex with multiple other smaller cavitary and non cavitary lung nodules bilaterally. Differential is ARJUN versus MTB versus sarcoid. Enlarged ascending thoracic aorta with thick wall left ventricle, question aortic stenosis Centrilobular emphysema in the upper lobes bilaterally Assessment & Plan - Diagnosis (1) Moderate protein-calorie malnutrition Is this a current diagnosis for this admission?: Yes Plan: consider nutritional consult (2) Pulmonary cavitary lesion Is this a current diagnosis for this admission?: Yes Plan: +1 & +2 AFBs smears;no hemoptysis,PPD (3) Ribs, multiple fractures Qualifiers: Encounter type: initial encounter Fracture type: closed Laterality: right Qualified Code(s): S22.41XA - Multiple fractures of ribs, right side, initial encounter for closed fracture Is this a current diagnosis for this admission?: Yes (4) Acid-fast bacteria present Is this a current diagnosis for this admission?: Yes Plan: initiate INH;RIFAMPIN;ETHAMBUTOL;Pyrazinamide pending culture and sensitivity Discussed with infectious disease RN she will notify health department
[2017-10-07] MEDS ORDERED: PYRAZINAMIDE 500 MG TABLET PO ONE (12:30)
[2017-10-07] MEDS ORDERED: ISONIAZID 300 MG TABLET PO ONE (12:30)
[2017-10-07] MEDS ORDERED: RIFAMPIN 300 MG CAPSULE PO ONE (12:30)
[2017-10-07] MEDS ORDERED: ETHAMBUTOL HCL 400 MG TABLET PO ONE (12:30)
--- NOTE | 2017-10-07 13:07 | PDOC PROGRESS REPORT ---
Subjective Progress Note for:: 10/07/17 Subjective:: Pt states that he was short of breath earlier this morning. Pt states that he is feeling better currently. Reason For Visit: PNEUMONIA, MULTIPLE RIB FRACTURES, LUNG NODULES Physical Exam Vital Signs: Temp Pulse Resp BP Pulse Ox 97.7 F 91 18 105/75 97 10/07/17 11:30 10/07/17 11:30 10/07/17 11:30 10/07/17 11:30 10/07/17 11:30 Intake & Output 10/06/17 10/07/17 10/08/17 06:59 06:59 06:59 Intake Total 4417 3026 100 Output Total 2125 1300 Balance 2292 1726 100 Weight 47.8 kg 47.9 kg General appearance: PRESENT: no acute distress, thin Head exam: PRESENT: atraumatic, normocephalic Eye exam: PRESENT: conjunctiva pink, EOMI. ABSENT: scleral icterus Ear exam: PRESENT: normal external ear exam Mouth exam: PRESENT: moist, tongue midline Neck exam: ABSENT: carotid bruit, JVD, lymphadenopathy, thyromegaly Respiratory exam: PRESENT: accessory muscle use, rhonchi. ABSENT: rales, wheezes Cardiovascular exam: PRESENT: RRR. ABSENT: diastolic murmur, rubs, systolic murmur Pulses: PRESENT: normal dorsalis pedis pul Vascular exam: PRESENT: normal capillary refill GI/Abdominal exam: PRESENT: normal bowel sounds, soft. ABSENT: distended, guarding, mass, organolmegaly, rebound, tenderness Rectal exam: PRESENT: deferred Extremities exam: PRESENT: full ROM. ABSENT: calf tenderness, clubbing, pedal edema Musculoskeletal exam: PRESENT: full ROM Neurological exam: PRESENT: alert, awake, oriented to person, oriented to place , oriented to time, oriented to situation, CN II-XII grossly intact. ABSENT: motor sensory deficit Psychiatric exam: PRESENT: appropriate affect, normal mood. ABSENT: homicidal ideation, suicidal ideation Skin exam: PRESENT: dry, intact, warm. ABSENT: cyanosis, rash Results Laboratory Results: 10/06/17 08:02 10/06/17 08:02 10/03/17 19:15 Sputum Gram Stain - Final Impressions: Ribs w/Chest X-Ray 10/03/17 00:00 IMPRESSION: No pneumothorax. Rib fractures. Pulmonary findings as described. Chest CT 10/03/17 13:52 IMPRESSION: Acute right posterior 6th through 11th rib fractures. Adjacent right lower lobe airspace disease likely pulmonary contusion. No pneumothorax or pleural effusion Thick walled cavitary lesion in the right lung apex with multiple other smaller cavitary and non cavitary lung nodules bilaterally. Differential is ARJUN versus MTB versus sarcoid. Enlarged ascending thoracic aorta with thick wall left ventricle, question aortic stenosis Centrilobular emphysema in the upper lobes bilaterally Assessment & Plan - Diagnosis (1) Acid-fast bacteria present Is this a current diagnosis for this admission?: Yes Plan: Appreciate Pulmonary's assistance. Pt has been initiated on TB medication. 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 (3) Pneumonia Qualifiers: Pneumonia type: due to unspecified organism Laterality: right Lung location: lower lobe of lung Qualified Code(s): J18.1 - Lobar pneumonia, unspecified organism Is this a current diagnosis for this admission?: Yes Plan: Streptococcus Pneumonia: Will continue Levaquin. (4) Fall Is this a current diagnosis for this admission?: Yes Plan: Supportive care. PT/OT evaluate pt. (5) Moderate protein-calorie malnutrition Is this a current diagnosis for this admission?: Yes Plan: Will continue supplemental drinks and encourage better PO intake. (6) Alcohol use Is this a current diagnosis for this admission?: Yes Plan: Ativan PRN. Thiamine and folate. (7) Hyponatremia Is this a current diagnosis for this admission?: Yes (8) Ribs, multiple fractures Qualifiers: Encounter type: initial encounter Fracture type: closed Laterality: right Qualified Code(s): S22.41XA - Multiple fractures of ribs, right side, initial encounter for closed fracture Is this a current diagnosis for this admission?: Yes Plan: Supportive care. Recommended abd diamond blender but pt states that he has one and it did not help. (9) Tobacco abuse Is this a current diagnosis for this admission?: Yes Plan: Nicotine patch - Time Time Spent with patient: Less than 15 minutes Anticipated discharge: Home
[2017-10-07] MEDS ORDERED: PYRIDOXINE HCL 50 MG TABLET PO ONE (16:00)
[2017-10-07] MEDS: LEVOFLOXACIN 750 MG TABLET PO SCH (21:34)
[2017-10-08] MEDS: MORPHINE SULFATE 10 MG/ML INJ IV PRN ×3 (00:28→09:14)
[2017-10-08] MEDS: DIAZEPAM 2 MG TABLET PO SCH ×3 (05:17→22:42)
[2017-10-08] MEDS: OXYCODONE HCL IR 5 MG TABLET PO SCH ×3 (05:17→17:54)
[2017-10-08] MEDS: GABAPENTIN 300 MG CAPSULE PO SCH ×3 (05:17→22:42)
[2017-10-08] MEDS: LANSOPRAZOLE 30 MG TAB.RAP.DR PO SCH (05:17)
[2017-10-08 05:56] LABS: ABSOLUTE BASOPHILS # (AUTO) 0.1 10^3/uL (0.0-0.2); ABSOLUTE EOSINOPHILS # (AUTO) 0.6 10^3/uL (0.0-0.6); ABSOLUTE LYMPHOCYTES (AUTO) 1.1 10^3/uL (0.5-4.7); ABSOLUTE MONOCYTES (AUTO) 2.4 10^3/uL (0.1-1.4); ABSOLUTE NEUT (AUTO) 8.6 10^3/uL (1.7-8.2); BASOPHILS % (AUTO) 0.7 % (0-2); EOSINOPHILS % (AUTO) 5.1 % (0-6); HEMATOCRIT 36.8 % (37.9-51.0); HEMOGLOBIN 12.5 g/dL (13.5-17.0); LYMPHOCYTES % (AUTO) 8.4 % (13-45); MEAN CORPUSCULAR HEMOGLOBIN 30.4 pg (27.0-33.4); MEAN CORPUSCULAR HGB CONC 33.8 g/dL (32.0-36.0); MEAN CORPUSCULAR VOLUME 90 fl (80-97); MONOCYTES % (AUTO) 18.5 % (3-13); PLATELET COUNT 601 10^3/uL (150-450); RED BLOOD COUNT 4.09 10^6/uL (4.35-5.55); RED CELL DISTRIBUTION WIDTH 16.1 % (11.5-14.0); SEGMENTED NEUTROPHILS % (AUTO) 67.3 % (42-78); TOTAL CELLS COUNTED % (AUTO) 100 %; WHITE BLOOD COUNT 12.8 10^3/uL (4.0-10.5)
[2017-10-08 06:14] LABS: ALANINE AMINOTRANSFERASE 40 U/L (21-72); ALBUMIN 3.2 g/dL (3.5-5.0); ALKALINE PHOSPHATASE 145 U/L (38-126); ANION GAP 11 (5-19); ASPARTATE AMINO TRANSFERASE 29 U/L (17-59); BILIRUBIN,DIRECT 0.3 mg/dL (0.0-0.4); BILIRUBIN,TOTAL 0.3 mg/dL (0.2-1.3); BLOOD UREA NITROGEN 13 mg/dL (7-20); CALCIUM 9.1 mg/dL (8.4-10.2); CARBON DIOXIDE 30 mmol/L (22-30); CHLORIDE 96 mmol/L (98-107); GLUCOSE 93 mg/dL (75-110); POTASSIUM 4.6 mmol/L (3.6-5.0); SODIUM 137.1 mmol/L (137-145); TOTAL PROTEIN 5.9 g/dL (6.3-8.2)
[2017-10-08] MEDS ORDERED: RIFAMPIN 300 MG CAPSULE PO SCH (08:00)
[2017-10-08] MEDS: RIFAMPIN 300 MG CAPSULE PO SCH (09:14)
[2017-10-08] MEDS ORDERED: PYRAZINAMIDE 500 MG TABLET PO SCH (10:00)
[2017-10-08] MEDS ORDERED: ETHAMBUTOL HCL 400 MG TABLET PO SCH (10:00)
[2017-10-08] MEDS: PYRAZINAMIDE 500 MG TABLET PO SCH (10:35)
[2017-10-08] MEDS: THIAMINE HCL 100 MG TABLET PO SCH (10:35)
[2017-10-08] MEDS: MULTIVITAMIN TABLET PO SCH (10:35)
[2017-10-08] MEDS: ETHAMBUTOL HCL 400 MG TABLET PO SCH (10:35)
[2017-10-08] MEDS: FOLIC ACID 1 MG TABLET PO SCH (10:35)
[2017-10-08] MEDS: NICOTINE 21 MG/24 HR PATCH.TD24 TD SCH (10:35)
[2017-10-08] MEDS: MAGNESIUM OXIDE 400 MG TABLET PO SCH ×2 (10:35→17:54)
[2017-10-08] MEDS: PYRIDOXINE HCL 50 MG TABLET PO SCH (10:35)
[2017-10-08] MEDS: NORMAL SALINE 1000 ML 1,000 ML IV PRN ×2 (10:36→20:12)
[2017-10-08] MEDS: ISONIAZID 300 MG TABLET PO SCH (10:37)
--- NOTE | 2017-10-08 11:20 | PDOC PROGRESS REPORT ---
Subjective Progress Note for:: 10/08/17 Subjective:: Pt states that he is doing ok today. Pt sates that yesterday he met with a person from the health department who he said was disrespectful. Pt states that she made him very upset and does not want to speak to her again. Pt states that he is tolerating medication well. Reason For Visit: PNEUMONIA, MULTIPLE RIB FRACTURES, LUNG NODULES Physical Exam Vital Signs: Temp Pulse Resp BP Pulse Ox 97.9 F 89 15 107/73 92 10/08/17 07:37 10/08/17 07:37 10/08/17 07:37 10/08/17 07:37 10/08/17 07:37 Intake & Output 10/07/17 10/08/17 10/09/17 06:59 06:59 06:59 Intake Total 3026 3368 Output Total 1300 400 Balance 1726 2968 Weight 47.9 kg 48.6 kg General appearance: PRESENT: no acute distress, thin Head exam: PRESENT: atraumatic, normocephalic Eye exam: PRESENT: conjunctiva pink, EOMI. ABSENT: scleral icterus Ear exam: PRESENT: normal external ear exam Mouth exam: PRESENT: moist, tongue midline Neck exam: ABSENT: carotid bruit, JVD, lymphadenopathy, thyromegaly Respiratory exam: PRESENT: other - Good breath sounds in the upper lobes, + scant coarse breath sounds at bases, No wheezing Cardiovascular exam: PRESENT: RRR. ABSENT: diastolic murmur, rubs, systolic murmur Pulses: PRESENT: normal dorsalis pedis pul Vascular exam: PRESENT: normal capillary refill GI/Abdominal exam: PRESENT: normal bowel sounds, soft. ABSENT: distended, guarding, mass, organolmegaly, rebound, tenderness Rectal exam: PRESENT: deferred Extremities exam: PRESENT: full ROM. ABSENT: calf tenderness, clubbing, pedal edema Neurological exam: PRESENT: alert, awake, oriented to person, oriented to place , oriented to time, oriented to situation, CN II-XII grossly intact. ABSENT: motor sensory deficit Psychiatric exam: PRESENT: appropriate affect, normal mood. ABSENT: homicidal ideation, suicidal ideation Skin exam: PRESENT: dry, intact, warm. ABSENT: cyanosis, rash Results Laboratory Results: 10/08/17 05:27 10/08/17 05:27 10/08/17 10/08/17 05:27 05:27 WBC 12.8 H RBC 4.09 L Hgb 12.5 L Hct 36.8 L MCV 90 MCH 30.4 MCHC 33.8 RDW 16.1 H Plt Count 601 H Seg Neutrophils % 67.3 Lymphocytes % 8.4 L Monocytes % 18.5 H Eosinophils % 5.1 Basophils % 0.7 Absolute Neutrophils 8.6 H Absolute Lymphocytes 1.1 Absolute Monocytes 2.4 H Absolute Eosinophils 0.6 Absolute Basophils 0.1 Sodium 137.1 Potassium 4.6 Chloride 96 L Carbon Dioxide 30 Anion Gap 11 BUN 13 Creatinine 0.53 Est GFR ( Amer) > 60 Est GFR (Non-Af Amer) > 60 Glucose 93 Calcium 9.1 Total Bilirubin 0.3 AST 29 ALT 40 Alkaline Phosphatase 145 H Total Protein 5.9 L Albumin 3.2 L 10/06/17 08:09 Sputum AFB Smear Concentration - Final 10/06/17 08:09 Sputum Acid Fast Bacilli Smear - Final 10/05/17 07:35 Sputum AFB Smear Concentration - Final 10/05/17 07:35 Sputum Acid Fast Bacilli Smear - Final 10/03/17 19:15 Sputum Fungal Smear - Final 10/03/17 19:15 Sputum Fungal Smear - Final 10/03/17 19:15 Sputum Gram Stain - Final 10/03/17 19:15 Sputum Sputum Culture - Final Streptococcus Pneumoniae Haemophilus Influenzae Normal Alee Absent Impressions: Ribs w/Chest X-Ray 10/03/17 00:00 IMPRESSION: No pneumothorax. Rib fractures. Pulmonary findings as described. Chest CT 10/03/17 13:52 IMPRESSION: Acute right posterior 6th through 11th rib fractures. Adjacent right lower lobe airspace disease likely pulmonary contusion. No pneumothorax or pleural effusion Thick walled cavitary lesion in the right lung apex with multiple other smaller cavitary and non cavitary lung nodules bilaterally. Differential is ARJUN versus MTB versus sarcoid. Enlarged ascending thoracic aorta with thick wall left ventricle, question aortic stenosis Centrilobular emphysema in the upper lobes bilaterally Assessment & Plan - Diagnosis (1) Acid-fast bacteria present Is this a current diagnosis for this admission?: Yes Plan: Appreciate Pulmonary's assistance. Pt has been initiated on TB medication. Currently not sure about pt's disposition due to pt not being happy with his encounter with the Health department. 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 (3) Pneumonia Qualifiers: Pneumonia type: due to unspecified organism Laterality: right Lung location: lower lobe of lung Qualified Code(s): J18.1 - Lobar pneumonia, unspecified organism Is this a current diagnosis for this admission?: Yes Plan: Streptococcus Pneumonia/H. Influenza: Will continue Levaquin. (4) Fall Is this a current diagnosis for this admission?: Yes Plan: Supportive care. PT/OT evaluate pt. (5) Moderate protein-calorie malnutrition Is this a current diagnosis for this admission?: Yes Plan: Will continue supplemental drinks and encourage better PO intake. (6) Alcohol use Is this a current diagnosis for this admission?: Yes Plan: Ativan PRN. Thiamine and folate. (7) Hyponatremia Is this a current diagnosis for this admission?: Yes Plan: resolved. (8) Ribs, multiple fractures Qualifiers: Encounter type: initial encounter Fracture type: closed Laterality: right Qualified Code(s): S22.41XA - Multiple fractures of ribs, right side, initial encounter for closed fracture Is this a current diagnosis for this admission?: Yes Plan: Supportive care. Recommended abd mixer and blender but pt states that he has one and it did not help. (9) Tobacco abuse Is this a current diagnosis for this admission?: Yes Plan: Nicotine patch - Time Time Spent with patient: Less than 15 minutes Anticipated discharge: Home
--- NOTE | 2017-10-08 13:17 | PDOC PROGRESS REPORT ---
Subjective Progress Note for:: 10/08/17 Subjective:: Awake without complaint,concedes that he may have TB Reason For Visit: PNEUMONIA, MULTIPLE RIB FRACTURES, LUNG NODULES Physical Exam Vital Signs: Temp Pulse Resp BP Pulse Ox 97.9 F 99 16 120/73 97 10/08/17 11:28 10/08/17 11:28 10/08/17 11:28 10/08/17 11:28 10/08/17 11:28 Intake & Output 10/07/17 10/08/17 10/09/17 06:59 06:59 06:59 Intake Total 3026 3368 474 Output Total 1300 400 Balance 1726 2968 474 Weight 47.9 kg 48.6 kg General appearance: PRESENT: no acute distress, cooperative, disheveled, thin, well-developed. ABSENT: hard of hearing, mild distress, morbidly obese, obese, severe distress Head exam: PRESENT: normocephalic, other - Laceration over right eyebrow Eye exam: PRESENT: conjunctiva pale, EOMI. ABSENT: conjunctival injection, conjunctiva pink, nystagmus, periorbital swelling, scleral icterus Mouth exam: PRESENT: laceration, neck supple, tongue midline. ABSENT: dry mucosa, moist Teeth exam: PRESENT: poor dentation Neck exam: ABSENT: carotid bruit, JVD, lymphadenopathy, thyromegaly, tracheal deviation, tracheostomy Respiratory exam: PRESENT: chest wall tenderness, decreased breath sounds, prolonged expiratory phas, rhonchi, symmetrical, unlabored, wheezes. ABSENT: accessory muscle use, clear to auscultation roz, crackles, rales, retraction, stridor, tachypnea Cardiovascular exam: PRESENT: RRR, +S1, +S2. ABSENT: irregular rhythm, rubs Pulses: PRESENT: normal radial pulses GI/Abdominal exam: PRESENT: normal bowel sounds, soft. ABSENT: distended, guarding, mass, organolmegaly, rebound, tenderness Extremities exam: ABSENT: clubbing, joint swelling Musculoskeletal exam: PRESENT: ambulatory. ABSENT: deformity, dislocation Neurological exam: PRESENT: alert, awake Psychiatric exam: PRESENT: normal mood Skin exam: PRESENT: dry, warm Results Laboratory Results: 10/08/17 05:27 10/08/17 05:27 10/08/17 10/08/17 05:27 05:27 WBC 12.8 H RBC 4.09 L Hgb 12.5 L Hct 36.8 L MCV 90 MCH 30.4 MCHC 33.8 RDW 16.1 H Plt Count 601 H Seg Neutrophils % 67.3 Lymphocytes % 8.4 L Monocytes % 18.5 H Eosinophils % 5.1 Basophils % 0.7 Absolute Neutrophils 8.6 H Absolute Lymphocytes 1.1 Absolute Monocytes 2.4 H Absolute Eosinophils 0.6 Absolute Basophils 0.1 Sodium 137.1 Potassium 4.6 Chloride 96 L Carbon Dioxide 30 Anion Gap 11 BUN 13 Creatinine 0.53 Est GFR ( Amer) > 60 Est GFR (Non-Af Amer) > 60 Glucose 93 Calcium 9.1 Total Bilirubin 0.3 AST 29 ALT 40 Alkaline Phosphatase 145 H Total Protein 5.9 L Albumin 3.2 L 10/06/17 08:09 Sputum AFB Smear Concentration - Final 10/06/17 08:09 Sputum Acid Fast Bacilli Smear - Final 10/05/17 07:35 Sputum AFB Smear Concentration - Final 10/05/17 07:35 Sputum Acid Fast Bacilli Smear - Final 10/03/17 19:15 Sputum Fungal Smear - Final 10/03/17 19:15 Sputum Fungal Smear - Final 10/03/17 19:15 Sputum Gram Stain - Final 10/03/17 19:15 Sputum Sputum Culture - Final Streptococcus Pneumoniae Haemophilus Influenzae Normal Alee Absent Impressions: Ribs w/Chest X-Ray 10/03/17 00:00 IMPRESSION: No pneumothorax. Rib fractures. Pulmonary findings as described. Chest CT 10/03/17 13:52 IMPRESSION: Acute right posterior 6th through 11th rib fractures. Adjacent right lower lobe airspace disease likely pulmonary contusion. No pneumothorax or pleural effusion Thick walled cavitary lesion in the right lung apex with multiple other smaller cavitary and non cavitary lung nodules bilaterally. Differential is ARJUN versus MTB versus sarcoid. Enlarged ascending thoracic aorta with thick wall left ventricle, question aortic stenosis Centrilobular emphysema in the upper lobes bilaterally Assessment & Plan - Diagnosis (1) Moderate protein-calorie malnutrition Is this a current diagnosis for this admission?: Yes Plan: consider nutritional consult (2) Pulmonary cavitary lesion Is this a current diagnosis for this admission?: Yes Plan: +1 & +2 AFBs smears;no hemoptysis,PPD (3) Ribs, multiple fractures Qualifiers: Encounter type: initial encounter Fracture type: closed Laterality: right Qualified Code(s): S22.41XA - Multiple fractures of ribs, right side, initial encounter for closed fracture Is this a current diagnosis for this admission?: Yes Plan: Still has inspiratory chest pain as well as tenderness to palpation (4) Acid-fast bacteria present Is this a current diagnosis for this admission?: Yes Plan: [facility] notified dose adjustments as per their recommendation
[2017-10-08] MEDS: IBUPROFEN 400 MG TABLET PO PRN ×2 (13:50→22:42)
[2017-10-08] MEDS: HYDROCODONE/ACETAMINOPHEN 10-325 MG TABLET PO PRN (15:24)
[2017-10-08] MEDS: LEVOFLOXACIN 750 MG TABLET PO SCH (22:42)
[2017-10-09] MEDS: OXYCODONE HCL IR 5 MG TABLET PO SCH ×5 (00:21→23:10)
[2017-10-09] MEDS: GABAPENTIN 300 MG CAPSULE PO SCH ×3 (05:15→22:55)
[2017-10-09] MEDS: LANSOPRAZOLE 30 MG TAB.RAP.DR PO SCH (05:15)
[2017-10-09] MEDS: DIAZEPAM 2 MG TABLET PO SCH ×3 (05:15→22:55)
[2017-10-09] MEDS: NORMAL SALINE 1000 ML 1,000 ML IV PRN ×2 (05:54→17:43)
[2017-10-09 06:23] LABS: ABSOLUTE EOSINOPHILS # (AUTO) 0.6 10^3/uL (0.0-0.6); ABSOLUTE LYMPHOCYTES (AUTO) 1.1 10^3/uL (0.5-4.7); ABSOLUTE MONOCYTES (AUTO) 2.8 10^3/uL (0.1-1.4); BASOPHILS % (AUTO) 0.3 % (0-2); EOSINOPHILS % (AUTO) 3.8 % (0-6); HEMATOCRIT 35.4 % (37.9-51.0); LYMPHOCYTES % (AUTO) 6.5 % (13-45); MEAN CORPUSCULAR HEMOGLOBIN 30.3 pg (27.0-33.4); MEAN CORPUSCULAR HGB CONC 33.9 g/dL (32.0-36.0); MEAN CORPUSCULAR VOLUME 90 fl (80-97); MONOCYTES % (AUTO) 16.7 % (3-13); PLATELET COUNT 675 10^3/uL (150-450); RED BLOOD COUNT 3.96 10^6/uL (4.35-5.55); RED CELL DISTRIBUTION WIDTH 16.2 % (11.5-14.0); SEGMENTED NEUTROPHILS % (AUTO) 72.7 % (42-78); TOTAL CELLS COUNTED % (AUTO) 100 %; WHITE BLOOD COUNT 16.5 10^3/uL (4.0-10.5)
[2017-10-09 06:46] LABS: ANION GAP 10 (5-19); BLOOD UREA NITROGEN 12 mg/dL (7-20); CALCIUM 8.8 mg/dL (8.4-10.2); CARBON DIOXIDE 29 mmol/L (22-30); CHLORIDE 100 mmol/L (98-107); GLUCOSE 118 mg/dL (75-110); POTASSIUM 4.5 mmol/L (3.6-5.0); SODIUM 138.9 mmol/L (137-145)
--- NOTE | 2017-10-09 08:46 | RADIOLOGY REPORT (SQ) ---
EXAM DESCRIPTION: U/S ABDOMEN COMPLETE W/O DOP COMPLETED DATE/TIME: 10/08/2017 9:56 pm REASON FOR STUDY: gb,pancreas,biliary tree COMPARISON: CT chest 10/03/2017 TECHNIQUE: Dynamic and static grayscale images acquired of the abdomen and recorded on PACS. Paigeo aimee selected color Doppler and spectral images recorded. LIMITATIONS: None. FINDINGS: PANCREAS: Midline pancreas unremarkable LIVER: No masses. Echotexture normal. LIVER VASCULATURE: Normal directional flow of the main portal vein and hepatic veins. GALLBLADDER: No stones. Normal wall thickness. No pericholecystic fluid. ULTRASOUND-DETECTED FINCH'S SIGN: Negative. INTRAHEPATIC DUCTS AND COMMON DUCT: CBD and intrahepatic ducts normal caliber. No filling defects. C ommon bile duct at the zakiya hepatis measures 2 to 3 mm in diameter. Distal most common duct not wel l seen due to duodenum gas INFERIOR VENA CAVA: Normal flow. AORTA: No aneurysm. RIGHT KIDNEY: Normal size. Normal echogenicity. No solid or suspicious masses. No hydronephros is. No calcifications. LEFT KIDNEY: Normal size. Normal echogenicity. No solid or suspicious masses. No hydronephrosi s. No calcifications. SPLEEN: Normal size. No solid masses. PERITONEAL AND PLEURAL SPACES: No ascites or effusions. OTHER: No other significant finding. IMPRESSION: NORMAL ABDOMINAL ULTRASOUND. TECHNICAL DOCUMENTATION: JOB ID: [id number] [employer]- All Rights Reserved
[2017-10-09] MEDS: PYRAZINAMIDE 500 MG TABLET PO SCH (09:22)
[2017-10-09] MEDS: FOLIC ACID 1 MG TABLET PO SCH (09:22)
[2017-10-09] MEDS: MULTIVITAMIN TABLET PO SCH (09:22)
[2017-10-09] MEDS: MAGNESIUM OXIDE 400 MG TABLET PO SCH ×2 (09:22→17:42)
[2017-10-09] MEDS: ISONIAZID 300 MG TABLET PO SCH (09:22)
[2017-10-09] MEDS: PYRIDOXINE HCL 50 MG TABLET PO SCH (09:22)
[2017-10-09] MEDS: THIAMINE HCL 100 MG TABLET PO SCH (09:22)
[2017-10-09] MEDS: ETHAMBUTOL HCL 400 MG TABLET PO SCH (09:22)
[2017-10-09] MEDS: RIFAMPIN 300 MG CAPSULE PO SCH (09:22)
[2017-10-09] MEDS: HYDROCODONE/ACETAMINOPHEN 10-325 MG TABLET PO PRN (09:23)
[2017-10-09] MEDS: NICOTINE 21 MG/24 HR PATCH.TD24 TD SCH (09:23)
[2017-10-09] MEDS ORDERED: PROMETHAZINE HCL INJ 25 MG/1 ML VIAL IV ONE (11:20)
--- NOTE | 2017-10-09 12:52 | PDOC PROGRESS REPORT ---
Subjective Progress Note for:: 10/09/17 Subjective:: Pt states that he is nauseated for the medication. Pt states that he is having some pain. Reason For Visit: PNEUMONIA, MULTIPLE RIB FRACTURES, LUNG NODULES Physical Exam Vital Signs: Temp Pulse Resp BP Pulse Ox 98.6 F 100 15 103/70 92 10/09/17 07:37 10/09/17 07:37 10/09/17 07:37 10/09/17 07:37 10/09/17 07:37 Intake & Output 10/08/17 10/09/17 10/10/17 06:59 06:59 06:59 Intake Total 3368 3838 Output Total 400 350 Balance 2968 3488 Weight 48.6 kg 47.2 kg General appearance: PRESENT: no acute distress, thin Head exam: PRESENT: atraumatic, normocephalic Eye exam: PRESENT: conjunctiva pink, EOMI. ABSENT: scleral icterus Ear exam: PRESENT: normal external ear exam Mouth exam: PRESENT: moist, tongue midline Neck exam: ABSENT: carotid bruit, JVD, lymphadenopathy, thyromegaly Respiratory exam: PRESENT: decreased breath sounds, other - No wheezing, No rhochi Cardiovascular exam: PRESENT: RRR. ABSENT: diastolic murmur, rubs, systolic murmur Pulses: PRESENT: normal dorsalis pedis pul Vascular exam: PRESENT: normal capillary refill GI/Abdominal exam: PRESENT: normal bowel sounds, soft. ABSENT: distended, guarding, mass, organolmegaly, rebound, tenderness Rectal exam: PRESENT: deferred Extremities exam: PRESENT: full ROM. ABSENT: calf tenderness, clubbing, pedal edema Neurological exam: PRESENT: alert, awake, oriented to person, oriented to place , oriented to time, oriented to situation, CN II-XII grossly intact. ABSENT: motor sensory deficit Skin exam: PRESENT: dry, intact, warm. ABSENT: cyanosis, rash Results Laboratory Results: 10/09/17 05:58 10/09/17 05:53 10/09/17 10/09/17 05:53 05:58 WBC 16.5 H RBC 3.96 L Hgb 12.0 L Hct 35.4 L MCV 90 MCH 30.3 MCHC 33.9 RDW 16.2 H Plt Count 675 H Seg Neutrophils % 72.7 Lymphocytes % 6.5 L Monocytes % 16.7 H Eosinophils % 3.8 Basophils % 0.3 Absolute Neutrophils 12.0 H Absolute Lymphocytes 1.1 Absolute Monocytes 2.8 H Absolute Eosinophils 0.6 Absolute Basophils 0.0 Sodium 138.9 Potassium 4.5 Chloride 100 Carbon Dioxide 29 Anion Gap 10 BUN 12 Creatinine 0.45 L Est GFR ( Amer) > 60 Est GFR (Non-Af Amer) > 60 Glucose 118 H Calcium 8.8 10/03/17 18:50 Blood Blood Culture - Final NO GROWTH IN 5 DAYS Impressions: Ribs w/Chest X-Ray 10/03/17 00:00 IMPRESSION: No pneumothorax. Rib fractures. Pulmonary findings as described. Chest CT 10/03/17 13:52 IMPRESSION: Acute right posterior 6th through 11th rib fractures. Adjacent right lower lobe airspace disease likely pulmonary contusion. No pneumothorax or pleural effusion Thick walled cavitary lesion in the right lung apex with multiple other smaller cavitary and non cavitary lung nodules bilaterally. Differential is ARJUN versus MTB versus sarcoid. Enlarged ascending thoracic aorta with thick wall left ventricle, question aortic stenosis Centrilobular emphysema in the upper lobes bilaterally Abdomen Ultrasound 10/08/17 13:44 IMPRESSION: NORMAL ABDOMINAL ULTRASOUND. Assessment & Plan - Diagnosis (1) Nausea Is this a current diagnosis for this admission?: Yes Plan: Will place pt on Zofran scheduled. (2) Acid-fast bacteria present Is this a current diagnosis for this admission?: Yes Plan: Appreciate Pulmonary's assistance. Pt has been initiated on TB medication. Currently not sure about pt's disposition due to pt not being happy with his encounter with the Health department. 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 (4) Pneumonia Qualifiers: Pneumonia type: due to unspecified organism Laterality: right Lung location: lower lobe of lung Qualified Code(s): J18.1 - Lobar pneumonia, unspecified organism Is this a current diagnosis for this admission?: Yes Plan: Streptococcus Pneumonia/H. Influenza: Will continue Levaquin. (5) Constipation Qualifiers: Constipation type: slow transit constipation Qualified Code(s): K59.01 - Slow transit constipation Is this a current diagnosis for this admission?: Yes Plan: Will place pt on Colace BID. (6) Fall Is this a current diagnosis for this admission?: Yes Plan: Supportive care. PT/OT evaluate pt. (7) Moderate protein-calorie malnutrition Is this a current diagnosis for this admission?: Yes Plan: Will continue supplemental drinks and encourage better PO intake. (8) Alcohol use Is this a current diagnosis for this admission?: Yes Plan: Ativan PRN. Thiamine and folate. (9) Hyponatremia Is this a current diagnosis for this admission?: Yes Plan: resolved. (10) Ribs, multiple fractures Qualifiers: Encounter type: initial encounter Fracture type: closed Laterality: right Qualified Code(s): S22.41XA - Multiple fractures of ribs, right side, initial encounter for closed fracture Is this a current diagnosis for this admission?: Yes Plan: Supportive care. Will increase Hydrocodone to Q4 hours. (11) Tobacco abuse Is this a current diagnosis for this admission?: Yes Plan: Nicotine patch - Time Time Spent with patient: 15-24 minutes - Concerned that pt will not be complaint with medication during the Holidays without supervision.
[2017-10-09] MEDS ORDERED: ONDANSETRON 4 MG TAB.RAPDIS PO ONE (13:30)
[2017-10-09] MEDS: MEGESTROL ACETATE 20 MG TABLET PO SCH ×2 (16:07→22:55)
[2017-10-09] MEDS: ONDANSETRON HCL 8 MG TABLET PO SCH ×2 (17:42→23:11)
[2017-10-09] MEDS: DOCUSATE SODIUM 100 MG CAPSULE PO SCH (17:42)
[2017-10-09] MEDS ORDERED: ONDANSETRON 4 MG TAB.RAPDIS PO SCH (18:00)
[2017-10-09] MEDS: IBUPROFEN 400 MG TABLET PO PRN (22:55)
[2017-10-09] MEDS: LEVOFLOXACIN 750 MG TABLET PO SCH (22:55)
[2017-10-10] MEDS: HYDROCODONE/ACETAMINOPHEN 10-325 MG TABLET PO PRN ×2 (04:16→22:24)
[2017-10-10] MEDS: NORMAL SALINE 1000 ML 1,000 ML IV PRN ×2 (04:16→14:22)
[2017-10-10] MEDS: LANSOPRAZOLE 30 MG TAB.RAP.DR PO SCH (05:31)
[2017-10-10] MEDS: ONDANSETRON HCL 8 MG TABLET PO SCH ×3 (05:31→17:31)
[2017-10-10] MEDS: GABAPENTIN 300 MG CAPSULE PO SCH ×3 (05:31→22:25)
[2017-10-10] MEDS: DIAZEPAM 2 MG TABLET PO SCH ×3 (05:31→22:25)
[2017-10-10] MEDS: OXYCODONE HCL IR 5 MG TABLET PO SCH ×3 (05:31→17:31)
[2017-10-10 05:39] LABS: ABSOLUTE BASOPHILS # (AUTO) 0.1 10^3/uL (0.0-0.2); ABSOLUTE EOSINOPHILS # (AUTO) 0.4 10^3/uL (0.0-0.6); ABSOLUTE MONOCYTES (AUTO) 3.5 10^3/uL (0.1-1.4); ABSOLUTE NEUT (AUTO) 12.9 10^3/uL (1.7-8.2); BASOPHILS % (AUTO) 0.5 % (0-2); EOSINOPHILS % (AUTO) 2.4 % (0-6); HEMATOCRIT 35.3 % (37.9-51.0); HEMOGLOBIN 11.9 g/dL (13.5-17.0); LYMPHOCYTES % (AUTO) 5.6 % (13-45); MEAN CORPUSCULAR HEMOGLOBIN 29.8 pg (27.0-33.4); MEAN CORPUSCULAR HGB CONC 33.6 g/dL (32.0-36.0); MEAN CORPUSCULAR VOLUME 89 fl (80-97); MONOCYTES % (AUTO) 19.6 % (3-13); PLATELET COUNT 738 10^3/uL (150-450); RED BLOOD COUNT 3.99 10^6/uL (4.35-5.55); SEGMENTED NEUTROPHILS % (AUTO) 71.9 % (42-78); TOTAL CELLS COUNTED % (AUTO) 100 %
[2017-10-10] MEDS: MEGESTROL ACETATE 20 MG TABLET PO SCH ×3 (05:48→22:25)
[2017-10-10 05:49] LABS: ANION GAP 12 (5-19); BLOOD UREA NITROGEN 14 mg/dL (7-20); CALCIUM 9.1 mg/dL (8.4-10.2); CARBON DIOXIDE 27 mmol/L (22-30); CHLORIDE 102 mmol/L (98-107); GLUCOSE 91 mg/dL (75-110); MAGNESIUM 2.1 mg/dL (1.6-2.3); POTASSIUM 4.4 mmol/L (3.6-5.0); SODIUM 140.8 mmol/L (137-145)
[2017-10-10] MEDS: RIFAMPIN 300 MG CAPSULE PO SCH (08:53)
[2017-10-10] MEDS: IBUPROFEN 400 MG TABLET PO PRN (08:54)
[2017-10-10] MEDS ORDERED: PROMETHAZINE HCL 25 MG TABLET PO ONE (09:15)
--- NOTE | 2017-10-10 09:34 | PDOC PROGRESS REPORT ---
Subjective Progress Note for:: 10/10/17 Subjective:: Patient continues to complain of nausea this morning. During my encounter patient states that he was doing well however nurse states that she gave him the rifampin and he became very nauseated. Patient reports that the Megace appears to be helping with his appetite. Nursing now reporting that patient is aggravated and concerned about having tuberculosis. Reason For Visit: PNEUMONIA, MULTIPLE RIB FRACTURES, LUNG NODULES Physical Exam Vital Signs: Temp Pulse Resp BP Pulse Ox 98.2 F 121 H 22 H 118/76 89 L 10/10/17 08:00 10/10/17 08:00 10/10/17 08:00 10/10/17 08:00 10/10/17 08:00 Intake & Output 10/09/17 10/10/17 10/11/17 06:59 06:59 06:59 Intake Total 3838 4901 Output Total 350 975 Balance 3488 3926 Weight 47.2 kg 47.9 kg General appearance: PRESENT: no acute distress, thin Head exam: PRESENT: atraumatic, normocephalic Eye exam: PRESENT: conjunctiva pink, EOMI. ABSENT: scleral icterus Ear exam: PRESENT: normal external ear exam Mouth exam: PRESENT: moist, tongue midline Neck exam: ABSENT: carotid bruit, JVD, lymphadenopathy, thyromegaly Respiratory exam: PRESENT: clear to auscultation roz. ABSENT: rales, rhonchi, wheezes Cardiovascular exam: PRESENT: RRR. ABSENT: diastolic murmur, rubs, systolic murmur Pulses: PRESENT: normal dorsalis pedis pul Vascular exam: PRESENT: normal capillary refill GI/Abdominal exam: PRESENT: normal bowel sounds, soft. ABSENT: distended, guarding, mass, organolmegaly, rebound, tenderness Rectal exam: PRESENT: deferred Extremities exam: PRESENT: full ROM. ABSENT: calf tenderness, clubbing, pedal edema Neurological exam: PRESENT: alert, awake, oriented to person, oriented to place , oriented to time, oriented to situation, CN II-XII grossly intact. ABSENT: motor sensory deficit Psychiatric exam: PRESENT: appropriate affect, normal mood. ABSENT: homicidal ideation, suicidal ideation Skin exam: PRESENT: dry, intact, warm. ABSENT: cyanosis, rash Results Laboratory Results: 10/10/17 05:16 10/10/17 05:16 10/10/17 10/10/17 05:16 05:16 WBC 18.0 H RBC 3.99 L Hgb 11.9 L Hct 35.3 L MCV 89 MCH 29.8 MCHC 33.6 RDW 16.0 H Plt Count 738 H Seg Neutrophils % 71.9 Lymphocytes % 5.6 L Monocytes % 19.6 H Eosinophils % 2.4 Basophils % 0.5 Absolute Neutrophils 12.9 H Absolute Lymphocytes 1.0 Absolute Monocytes 3.5 H Absolute Eosinophils 0.4 Absolute Basophils 0.1 Sodium 140.8 Potassium 4.4 Chloride 102 Carbon Dioxide 27 Anion Gap 12 BUN 14 Creatinine 0.50 L Est GFR ( Amer) > 60 Est GFR (Non-Af Amer) > 60 Glucose 91 Calcium 9.1 Magnesium 2.1 Impressions: Ribs w/Chest X-Ray 10/03/17 00:00 IMPRESSION: No pneumothorax. Rib fractures. Pulmonary findings as described. Chest CT 10/03/17 13:52 IMPRESSION: Acute right posterior 6th through 11th rib fractures. Adjacent right lower lobe airspace disease likely pulmonary contusion. No pneumothorax or pleural effusion Thick walled cavitary lesion in the right lung apex with multiple other smaller cavitary and non cavitary lung nodules bilaterally. Differential is ARJUN versus MTB versus sarcoid. Enlarged ascending thoracic aorta with thick wall left ventricle, question aortic stenosis Centrilobular emphysema in the upper lobes bilaterally Abdomen Ultrasound 10/08/17 13:44 IMPRESSION: NORMAL ABDOMINAL ULTRASOUND. Assessment & Plan - Diagnosis (1) Nausea Is this a current diagnosis for this admission?: Yes Plan: Secondary to tuberculosis medication: We will continue Zofran but will add Phenergan when symptoms are not controlled by Zofran (2) Acid-fast bacteria present Is this a current diagnosis for this admission?: Yes Plan: Presumed tuberculosis: Appreciate Pulmonary's assistance. Patient currently on tuberculosis medication. There is concerned that patient will not have supervision over the holidays with tuberculosis medication therefore will keep patient here in hospital until the health department can confirm that they will be able to follow-up with patient after Ind[place] holiday. (3) Pulmonary cavitary lesion Is this a current diagnosis for this admission?: Yes Plan: Suspected tuberculosis: + for AFBs Continue TB medication. (4) Pneumonia Qualifiers: Pneumonia type: due to unspecified organism Laterality: right Lung location: lower lobe of lung Qualified Code(s): J18.1 - Lobar pneumonia, unspecified organism Is this a current diagnosis for this admission?: Yes Plan: Streptococcus Pneumonia/H. Influenza: Will continue Levaquin. (5) Constipation Qualifiers: Constipation type: slow transit constipation Qualified Code(s): K59.01 - Slow transit constipation Is this a current diagnosis for this admission?: Yes Plan: Colace BID. (6) Fall Is this a current diagnosis for this admission?: Yes Plan: Supportive care. PT/OT evaluate pt. (7) Moderate protein-calorie malnutrition Is this a current diagnosis for this admission?: Yes Plan: Will continue supplemental drinks and encourage better PO intake. Patient was started on Megace yesterday 3 times a day. Patient reports that he thinks that it is helping with his appetite. We will continue to monitor. (8) Alcohol use Is this a current diagnosis for this admission?: Yes Plan: Ativan PRN. Thiamine,folate, and multivitamin (9) Hyponatremia Is this a current diagnosis for this admission?: Yes Plan: resolved. (10) Ribs, multiple fractures Qualifiers: Encounter type: initial encounter Fracture type: closed Laterality: right Qualified Code(s): S22.41XA - Multiple fractures of ribs, right side, initial encounter for closed fracture Is this a current diagnosis for this admission?: Yes Plan: Supportive care. Will continue hydrocodone to Q4 hours. (11) Tobacco abuse Is this a current diagnosis for this admission?: Yes Plan: Nicotine patch (12) Leukocytosis Is this a current diagnosis for this admission?: Yes Plan: We will continue to monitor. This could represent stress response. Patient has been afebrile and does not appear to be toxic. Patient is currently being treated for pneumonia and tuberculosis. (13) DVT prophylaxis Is this a current diagnosis for this admission?: Yes Plan: SCDs - Time Time Spent with patient: 15-24 minutes
[2017-10-10] MEDS: DOCUSATE SODIUM 100 MG CAPSULE PO SCH ×2 (10:14→17:32)
[2017-10-10] MEDS: ETHAMBUTOL HCL 400 MG TABLET PO SCH (10:14)
[2017-10-10] MEDS: FOLIC ACID 1 MG TABLET PO SCH (10:15)
[2017-10-10] MEDS: MAGNESIUM OXIDE 400 MG TABLET PO SCH ×2 (10:15→17:31)
[2017-10-10] MEDS: MULTIVITAMIN TABLET PO SCH (10:15)
[2017-10-10] MEDS: ISONIAZID 300 MG TABLET PO SCH (10:15)
[2017-10-10] MEDS: NICOTINE 21 MG/24 HR PATCH.TD24 TD SCH (10:16)
[2017-10-10] MEDS: PYRIDOXINE HCL 50 MG TABLET PO SCH (10:16)
[2017-10-10] MEDS: THIAMINE HCL 100 MG TABLET PO SCH (10:16)
[2017-10-10] MEDS: PYRAZINAMIDE 500 MG TABLET PO SCH (10:17)
[2017-10-10] MEDS: ACETAMINOPHEN 325 MG TABLET PO PRN (18:50)
[2017-10-10] MEDS: LEVOFLOXACIN 750 MG TABLET PO SCH (22:25)
[2017-10-11] MEDS: PROMETHAZINE HCL 25 MG TABLET PO PRN (00:42)
[2017-10-11] MEDS: OXYCODONE HCL IR 5 MG TABLET PO SCH ×2 (00:42→05:17)
[2017-10-11] MEDS: NORMAL SALINE 1000 ML 1,000 ML IV PRN (00:43)
[2017-10-11] MEDS: ONDANSETRON HCL 8 MG TABLET PO SCH ×5 (00:49→23:18)
[2017-10-11] MEDS: HYDROCODONE/ACETAMINOPHEN 10-325 MG TABLET PO PRN ×2 (04:30→09:40)
[2017-10-11] MEDS: GABAPENTIN 300 MG CAPSULE PO SCH (05:17)
[2017-10-11] MEDS: LANSOPRAZOLE 30 MG TAB.RAP.DR PO SCH (05:17)
[2017-10-11] MEDS: DIAZEPAM 2 MG TABLET PO SCH ×3 (05:17→22:04)
[2017-10-11] MEDS: MEGESTROL ACETATE 20 MG TABLET PO SCH ×3 (05:17→22:04)
[2017-10-11] MEDS: RIFAMPIN 300 MG CAPSULE PO SCH (09:31)
[2017-10-11] MEDS: THIAMINE HCL 100 MG TABLET PO SCH (09:31)
[2017-10-11] MEDS: PYRIDOXINE HCL 50 MG TABLET PO SCH (09:31)
[2017-10-11] MEDS: MAGNESIUM OXIDE 400 MG TABLET PO SCH ×2 (09:31→17:45)
[2017-10-11] MEDS: MULTIVITAMIN TABLET PO SCH (09:31)
[2017-10-11] MEDS: NICOTINE 21 MG/24 HR PATCH.TD24 TD SCH (09:31)
[2017-10-11] MEDS: DOCUSATE SODIUM 100 MG CAPSULE PO SCH ×2 (09:31→17:45)
[2017-10-11] MEDS: FOLIC ACID 1 MG TABLET PO SCH (09:31)
[2017-10-11] MEDS: ETHAMBUTOL HCL 400 MG TABLET PO SCH (09:32)
[2017-10-11] MEDS: PYRAZINAMIDE 500 MG TABLET PO SCH (09:32)
[2017-10-11] MEDS: ISONIAZID 300 MG TABLET PO SCH (09:32)
[2017-10-11] MEDS: IBUPROFEN 400 MG TABLET PO PRN (12:14)
[2017-10-11] MEDS ORDERED: SORBITOL 70% SOLUTION 30 ML UDC PO PRN (12:42)
--- NOTE | 2017-10-11 13:02 | PDOC PROGRESS REPORT ---
Subjective Progress Note for:: 10/11/17 Subjective:: Patient presented with right rib pain found to have multiple rib fractures which he sustained after a fall. Patient being treated for pneumonia. Patient with R apex cavitary lesion. 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 Patient complaining abdominal pain. Patient also stated that his ribs still hurt. Patient states that the pain medication helps for about 4 hours. Patient states he has been moving his bowels. Reason For Visit: PNEUMONIA, MULTIPLE RIB FRACTURES, LUNG NODULES Physical Exam Vital Signs: Temp Pulse Resp BP Pulse Ox 98.7 F 101 H 22 H 112/70 95 10/11/17 07:47 10/11/17 07:47 10/11/17 07:47 10/11/17 07:47 10/11/17 07:47 Intake & Output 10/10/17 10/11/17 10/12/17 06:59 06:59 06:59 Intake Total 4901 3514 Output Total 975 1305 Balance 3926 2209 Weight 47.9 kg 47 kg General appearance: PRESENT: mild distress, thin Head exam: PRESENT: normocephalic Eye exam: PRESENT: EOMI. ABSENT: scleral icterus Ear exam: PRESENT: normal external ear exam Mouth exam: PRESENT: moist Neck exam: ABSENT: carotid bruit, JVD, lymphadenopathy, thyromegaly Respiratory exam: PRESENT: clear to auscultation roz, other - shallow breathing. ABSENT: rales, rhonchi, wheezes Cardiovascular exam: PRESENT: RRR, tachycardia. ABSENT: diastolic murmur, rubs , systolic murmur GI/Abdominal exam: PRESENT: normal bowel sounds, soft, tenderness. ABSENT: distended, guarding, mass, organolmegaly, rebound Rectal exam: PRESENT: deferred Extremities exam: PRESENT: full ROM. ABSENT: calf tenderness, clubbing, pedal edema Neurological exam: PRESENT: alert, awake, oriented to person, oriented to place , oriented to time, oriented to situation, CN II-XII grossly intact. ABSENT: motor sensory deficit Psychiatric exam: PRESENT: appropriate affect, normal mood. ABSENT: homicidal ideation, suicidal ideation Skin exam: PRESENT: dry, intact, rash - erythema and flacking around his nunez. , warm, other. ABSENT: cyanosis Results Laboratory Results: 10/10/17 05:16 10/10/17 05:16 10/07/17 14:20 Sputum AFB Smear Concentration - Final 10/07/17 14:20 Sputum Acid Fast Bacilli Smear - Final Impressions: Ribs w/Chest X-Ray 10/03/17 00:00 IMPRESSION: No pneumothorax. Rib fractures. Pulmonary findings as described. Chest CT 10/03/17 13:52 IMPRESSION: Acute right posterior 6th through 11th rib fractures. Adjacent right lower lobe airspace disease likely pulmonary contusion. No pneumothorax or pleural effusion Thick walled cavitary lesion in the right lung apex with multiple other smaller cavitary and non cavitary lung nodules bilaterally. Differential is ARJUN versus MTB versus sarcoid. Enlarged ascending thoracic aorta with thick wall left ventricle, question aortic stenosis Centrilobular emphysema in the upper lobes bilaterally Abdomen Ultrasound 10/08/17 13:44 IMPRESSION: NORMAL ABDOMINAL ULTRASOUND. 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 Patient currently on therapy. (2) Pulmonary cavitary lesion Is this a current diagnosis for this admission?: Yes Plan: AFBs positive and patient is being treated for possible TB. (3) Pneumonia Qualifiers: Pneumonia type: due to unspecified organism Laterality: right Lung location: lower lobe of lung Qualified Code(s): J18.1 - Lobar pneumonia, unspecified organism Is this a current diagnosis for this admission?: Yes Plan: Streptococcus Pneumonia/H. Influenza: Continue Levaquin for 10 days. (4) Ribs, multiple fractures Qualifiers: Encounter type: initial encounter Fracture type: closed Laterality: right Qualified Code(s): S22.41XA - Multiple fractures of ribs, right side, initial encounter for closed fracture Is this a current diagnosis for this admission?: Yes Plan: Pain not well controlled. Secondary to a fall patient fractured his right ribs 6 -11. Will put patient on long acting oxycontin along with IR to see if pain can be better controlled. (5) Constipation Qualifiers: Constipation type: slow transit constipation Qualified Code(s): K59.01 - Slow transit constipation Is this a current diagnosis for this admission?: Yes Plan: Patient on colace. Will start PRN sorbitol. (6) Alcohol use Is this a current diagnosis for this admission?: Yes Plan: Continue valium, PRN ativan, thiamine, folate and multivitamin. Patient not showing any signs of withdrawal. (7) Tobacco abuse Is this a current diagnosis for this admission?: Yes Plan: Counseling on smoking cessation and nicotine patch. (8) Hyponatremia Is this a current diagnosis for this admission?: Yes Plan: Resolved. (9) Moderate protein-calorie malnutrition Is this a current diagnosis for this admission?: Yes Plan: Patient started on megace and is being supplements. (10) Fall Is this a current diagnosis for this admission?: Yes Plan: PT/OT consulted. (11) Leukocytosis Is this a current diagnosis for this admission?: Yes Plan: Patient currently being treated for pneumonia and TB. Patient does not appear ill however WBC is trending up. This could be reactive. Will repeat CXR and continue to follow. (12) DVT prophylaxis Is this a current diagnosis for this admission?: Yes Plan: SCD - Time Time Spent with patient: Less than 15 minutes Anticipated discharge: Other - Patient is homeless. Within: Other - When patient has a place to stay and can be monitored taking his medications for his TB.
[2017-10-11] MEDS: OXYCODONE HCL IR 5 MG TABLET PO PRN ×3 (14:11→23:54)
--- NOTE | 2017-10-11 15:24 | RADIOLOGY REPORT (SQ) ---
EXAM DESCRIPTION: KUB/ABDOMEN (SINGLE VIEW) COMPLETED DATE/TIME: 10/11/2017 3:01 pm REASON FOR STUDY: abdominal pain/pneumonia COMPARISON: None. NUMBER OF VIEWS: One view. TECHNIQUE: Supine radiographic image of the abdomen acquired. LIMITATIONS: None. FINDINGS: BOWEL GAS PATTERN: Normal bowel gas pattern. No dilated loops. CALCIFICATIONS: No suspicious calcifications. SOFT TISSUES: No gross mass or suggestion of organomegaly. HARDWARE: None in the abdomen. BONES: Well-demarcated expansile lesion left superior pubic ramus measuring 3.5 x 1.8 cm. No fractur e. OTHER: No other significant finding. IMPRESSION: NO RADIOGRAPHIC EVIDENCE FOR ACUTE ABDOMINAL DISEASE. WELL-DEMARCATED EXPANSILE LESION LEFT SUPERIOR PUBIC RAMUS MOST LIKELY REPRESENTS A BENIGN BONE CYST OR ENCHONDROMA. RECOMMEND CORRELATION WITH PRIOR IMAGING IF AVAILABLE. CONSIDER FOLLOWUP OUTPATIENT CT OR MRI. TECHNICAL DOCUMENTATION: JOB ID: [id number] [employer]- All Rights Reserved
[2017-10-11] MEDS: KETOCONAZOLE 2% SHAMPOO 120 ML BOTTLE TP SCH (18:38)
[2017-10-11] MEDS: ACETAMINOPHEN 325 MG TABLET PO PRN (19:46)
[2017-10-11] MEDS ORDERED: LORAZEPAM INJ 2 MG/1 ML VIAL IV ONE (20:04)
[2017-10-11] MEDS ORDERED: LACTULOSE SYRUP 20 GM/30 ML UDCUP PO ONE (20:04)
[2017-10-11] MEDS: LEVOFLOXACIN 750 MG TABLET PO SCH (22:04)
[2017-10-11] MEDS: PANTOPRAZOLE SODIUM 40 MG VIAL IV SCH (22:04)
[2017-10-11] MEDS: OXYCODONE HCL SR 10 MG TABLET PO SCH (22:04)
[2017-10-12] MEDS: OXYCODONE HCL IR 5 MG TABLET PO PRN ×4 (04:18→23:28)
[2017-10-12] MEDS: MEGESTROL ACETATE 20 MG TABLET PO SCH (05:37)
[2017-10-12] MEDS: ONDANSETRON HCL 8 MG TABLET PO SCH ×4 (05:37→23:28)
[2017-10-12] MEDS: DIAZEPAM 2 MG TABLET PO SCH ×2 (05:37→21:10)
[2017-10-12 06:38] LABS: ABSOLUTE BASOPHILS # (AUTO) 0.2 10^3/uL (0.0-0.2); ABSOLUTE EOSINOPHILS # (AUTO) 0.2 10^3/uL (0.0-0.6); ABSOLUTE LYMPHOCYTES (AUTO) 1.1 10^3/uL (0.5-4.7); ABSOLUTE MONOCYTES (AUTO) 2.9 10^3/uL (0.1-1.4); ABSOLUTE NEUT (AUTO) 13.2 10^3/uL (1.7-8.2); HEMATOCRIT 33.4 % (37.9-51.0); HEMOGLOBIN 11.3 g/dL (13.5-17.0); LYMPHOCYTES % (AUTO) 6.3 % (13-45); MEAN CORPUSCULAR HEMOGLOBIN 29.9 pg (27.0-33.4); MEAN CORPUSCULAR HGB CONC 33.9 g/dL (32.0-36.0); MEAN CORPUSCULAR VOLUME 88 fl (80-97); MONOCYTES % (AUTO) 16.7 % (3-13); PLATELET COUNT 769 10^3/uL (150-450); RED BLOOD COUNT 3.79 10^6/uL (4.35-5.55); RED CELL DISTRIBUTION WIDTH 16.3 % (11.5-14.0); TOTAL CELLS COUNTED % (AUTO) 100 %; WHITE BLOOD COUNT 17.6 10^3/uL (4.0-10.5)
[2017-10-12] MEDS: RIFAMPIN 300 MG CAPSULE PO SCH (08:20)
[2017-10-12] MEDS: PROMETHAZINE HCL 25 MG TABLET PO PRN ×2 (08:23→18:18)
[2017-10-12] MEDS: DOCUSATE SODIUM 100 MG CAPSULE PO SCH ×2 (10:04→17:28)
[2017-10-12] MEDS: FOLIC ACID 1 MG TABLET PO SCH (10:17)
[2017-10-12] MEDS: MULTIVITAMIN TABLET PO SCH (10:17)
[2017-10-12] MEDS: NICOTINE 21 MG/24 HR PATCH.TD24 TD SCH (10:17)
[2017-10-12] MEDS: PYRAZINAMIDE 500 MG TABLET PO SCH (10:18)
[2017-10-12] MEDS: ISONIAZID 300 MG TABLET PO SCH (10:18)
[2017-10-12] MEDS: PYRIDOXINE HCL 50 MG TABLET PO SCH (10:18)
[2017-10-12] MEDS: THIAMINE HCL 100 MG TABLET PO SCH (10:18)
[2017-10-12] MEDS: ETHAMBUTOL HCL 400 MG TABLET PO SCH (10:18)
[2017-10-12] MEDS: MAGNESIUM OXIDE 400 MG TABLET PO SCH (10:18)
[2017-10-12] MEDS: OXYCODONE HCL SR 10 MG TABLET PO SCH ×2 (10:18→21:10)
[2017-10-12] MEDS: PANTOPRAZOLE SODIUM 40 MG VIAL IV SCH ×2 (10:21→21:10)
[2017-10-12] MEDS ORDERED: OXYCODONE HCL SR 10 MG TABLET PO ONE (13:32)
[2017-10-12] MEDS ORDERED: OXYCODONE HCL SR 10 MG TABLET PO SCH (13:34)
--- NOTE | 2017-10-12 14:21 | PDOC PROGRESS REPORT ---
Subjective Progress Note for:: 10/12/17 Subjective:: Patient presented with right rib pain found to have multiple rib fractures which he sustained after a fall. Patient being treated for pneumonia. Patient with R apex cavitary lesion. 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 Patient complaining of right sided rib pain. Patient has a broken ribs. Cannot seem to get comfortable. Last night patient was thought to be going through withdrawal (tachycardia) however patient has been here for 9 days seems a little late to be withdrawn. Reason For Visit: PNEUMONIA, MULTIPLE RIB FRACTURES, LUNG NODULES Physical Exam Vital Signs: Temp Pulse Resp BP Pulse Ox 97.7 F 117 H 18 117/71 93 10/12/17 13:10 10/12/17 13:10 10/12/17 13:10 10/12/17 13:10 10/12/17 13:10 Intake & Output 10/11/17 10/12/17 10/13/17 06:59 06:59 06:59 Intake Total 3514 2906 400 Output Total 1305 1026 Balance 2209 1880 400 Weight 47 kg 46 kg General appearance: PRESENT: disheveled, thin Head exam: PRESENT: normocephalic Eye exam: PRESENT: EOMI Neck exam: ABSENT: carotid bruit, JVD, lymphadenopathy, thyromegaly Respiratory exam: PRESENT: clear to auscultation roz. ABSENT: rales, rhonchi, wheezes Cardiovascular exam: PRESENT: RRR. ABSENT: diastolic murmur, rubs, systolic murmur GI/Abdominal exam: PRESENT: normal bowel sounds, soft. ABSENT: distended, guarding, mass, organolmegaly, rebound, tenderness Rectal exam: PRESENT: deferred Extremities exam: PRESENT: full ROM. ABSENT: calf tenderness, clubbing, pedal edema Neurological exam: PRESENT: alert, awake, oriented to person, oriented to place , oriented to time, oriented to situation, CN II-XII grossly intact. ABSENT: motor sensory deficit Psychiatric exam: PRESENT: agitated, appropriate affect, normal mood. ABSENT: homicidal ideation, suicidal ideation Skin exam: PRESENT: dry, intact, warm, other - Blotches on his back, flaking on his face around his nunez area.. ABSENT: cyanosis, rash Results Laboratory Results: 10/12/17 06:11 10/10/17 05:16 10/12/17 06:11 WBC 17.6 H RBC 3.79 L Hgb 11.3 L Hct 33.4 L MCV 88 MCH 29.9 MCHC 33.9 RDW 16.3 H Plt Count 769 H Seg Neutrophils % 75.0 Lymphocytes % 6.3 L Monocytes % 16.7 H Eosinophils % 1.0 Basophils % 1.0 Absolute Neutrophils 13.2 H Absolute Lymphocytes 1.1 Absolute Monocytes 2.9 H Absolute Eosinophils 0.2 Absolute Basophils 0.2 Impressions: Ribs w/Chest X-Ray 10/03/17 00:00 IMPRESSION: No pneumothorax. Rib fractures. Pulmonary findings as described. Chest CT 10/03/17 13:52 IMPRESSION: Acute right posterior 6th through 11th rib fractures. Adjacent right lower lobe airspace disease likely pulmonary contusion. No pneumothorax or pleural effusion Thick walled cavitary lesion in the right lung apex with multiple other smaller cavitary and non cavitary lung nodules bilaterally. Differential is ARJUN versus MTB versus sarcoid. Enlarged ascending thoracic aorta with thick wall left ventricle, question aortic stenosis Centrilobular emphysema in the upper lobes bilaterally Abdomen Ultrasound 10/08/17 13:44 IMPRESSION: NORMAL ABDOMINAL ULTRASOUND. KUB X-Ray 10/11/17 00:00 IMPRESSION: NO RADIOGRAPHIC EVIDENCE FOR ACUTE ABDOMINAL DISEASE. WELL-DEMARCATED EXPANSILE LESION LEFT SUPERIOR PUBIC RAMUS MOST LIKELY REPRESENTS A BENIGN BONE CYST OR ENCHONDROMA. RECOMMEND CORRELATION WITH PRIOR IMAGING IF AVAILABLE. CONSIDER FOLLOWUP OUTPATIENT CT OR MRI. 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 Patient currently on therapy. Pulmonology following. (2) Pulmonary cavitary lesion Is this a current diagnosis for this admission?: Yes Plan: AFBs positive and patient is being treated for possible TB. (3) Pneumonia Qualifiers: Pneumonia type: due to unspecified organism Laterality: right Lung location: lower lobe of lung Qualified Code(s): J18.1 - Lobar pneumonia, unspecified organism Is this a current diagnosis for this admission?: Yes Plan: Streptococcus Pneumonia/H. Influenza: Continue Levaquin for 10 days. Leukocytosis starting to trend back down. (4) Ribs, multiple fractures Qualifiers: Encounter type: initial encounter Fracture type: closed Laterality: right Qualified Code(s): S22.41XA - Multiple fractures of ribs, right side, initial encounter for closed fracture Is this a current diagnosis for this admission?: Yes Plan: Pain not well controlled. Secondary to a fall patient fractured his right ribs 6 -11. Continue oxycontin but increase to 20 mg p.o. twice a day along with IR. Also add lidocaine patch. (5) Constipation Qualifiers: Constipation type: slow transit constipation Qualified Code(s): K59.01 - Slow transit constipation Is this a current diagnosis for this admission?: Yes Plan: Patient on colace. Continue PRN sorbitol. Patient had a bowel movement on . (6) Alcohol use Is this a current diagnosis for this admission?: Yes Plan: Continue valium, PRN ativan, thiamine, folate and multivitamin. Patient not showing any signs of withdrawal. (7) Tobacco abuse Is this a current diagnosis for this admission?: Yes Plan: Counseling on smoking cessation and nicotine patch. (8) Hyponatremia Is this a current diagnosis for this admission?: Yes Plan: Resolved. (9) Moderate protein-calorie malnutrition Is this a current diagnosis for this admission?: Yes Plan: Continue Megace and dietary supplements. (10) Fall Is this a current diagnosis for this admission?: Yes Plan: PT/OT consulted. (11) Leukocytosis Is this a current diagnosis for this admission?: Yes Plan: Patient currently being treated for pneumonia and TB. CBC is now trending down. This could be all reactive. (12) Abdominal pain Is this a current diagnosis for this admission?: Yes Plan: Possibly secondary to medications and or constipation. No acute findings on KUB. (13) DVT prophylaxis Is this a current diagnosis for this admission?: Yes Plan: SCD - Time Time Spent with patient: Less than 15 minutes Anticipated discharge: Other Within: Other - Inpatient Certification Medical Necessity: Risk of Complication if Not Cared For in Hospital
[2017-10-12] MEDS ORDERED: LIDOCAINE 5% (700 MG) TRANSDERMAL ADH..PATCH TP ONE (16:00)
[2017-10-12] MEDS: LEVOFLOXACIN 750 MG TABLET PO SCH (21:10)
[2017-10-12] MEDS: TRAZODONE HCL 50 MG TABLET PO SCH (21:10)
[2017-10-13] MEDS: OXYCODONE HCL IR 5 MG TABLET PO PRN ×3 (03:43→18:07)
[2017-10-13] MEDS: DIAZEPAM 2 MG TABLET PO SCH (05:28)
[2017-10-13] MEDS: ONDANSETRON HCL 8 MG TABLET PO SCH ×3 (05:28→18:07)
[2017-10-13] MEDS: RIFAMPIN 300 MG CAPSULE PO SCH (08:24)
[2017-10-13] MEDS ORDERED: METOPROLOL SUCCINATE 25 MG TAB.SR.24H PO SCH (10:00)
[2017-10-13] MEDS ORDERED: DIAZEPAM 2 MG TABLET PO SCH ×2 (10:00→10:35)
[2017-10-13] MEDS ORDERED: HYDROMORPHONE HCL INJ/PF 2 MG/ML AMPULE IV ONE (10:36)
[2017-10-13] MEDS: LIDOCAINE 5% (700 MG) TRANSDERMAL ADH..PATCH TP SCH (11:00)
[2017-10-13] MEDS: PYRAZINAMIDE 500 MG TABLET PO SCH (11:00)
[2017-10-13] MEDS: ETHAMBUTOL HCL 400 MG TABLET PO SCH (11:00)
[2017-10-13] MEDS: DOCUSATE SODIUM 100 MG CAPSULE PO SCH ×2 (11:02→18:07)
[2017-10-13] MEDS: THIAMINE HCL 100 MG TABLET PO SCH (11:03)
[2017-10-13] MEDS: ISONIAZID 300 MG TABLET PO SCH (11:03)
[2017-10-13] MEDS: FOLIC ACID 1 MG TABLET PO SCH (11:03)
[2017-10-13] MEDS: MULTIVITAMIN TABLET PO SCH (11:04)
[2017-10-13] MEDS: OXYCODONE HCL SR 10 MG TABLET PO SCH ×2 (11:05→22:24)
[2017-10-13] MEDS: MAGNESIUM OXIDE 400 MG TABLET PO SCH (11:05)
[2017-10-13] MEDS: PYRIDOXINE HCL 50 MG TABLET PO SCH (11:07)
[2017-10-13] MEDS: MEGESTROL ACETATE SUSP 400 MG/10 ML UDCUP PO SCH (11:07)
[2017-10-13] MEDS: NICOTINE 21 MG/24 HR PATCH.TD24 TD SCH (11:09)
[2017-10-13] MEDS: PANTOPRAZOLE SODIUM 40 MG VIAL IV SCH (11:11)
[2017-10-13] MEDS: KETOCONAZOLE 2% SHAMPOO 120 ML BOTTLE TP SCH (11:11)
--- NOTE | 2017-10-13 12:10 | PDOC PROGRESS REPORT ---
Subjective Progress Note for:: 10/13/17 Subjective:: Patient presented with right rib pain found to have multiple rib fractures which he sustained after a fall. Patient being treated for pneumonia. Patient with R apex cavitary lesion. 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 Complaining of not being able to go get comfortable. Patient states he feels he is going to withdrawal because he is not getting enough pain medications. Patient normally takes more medication off the street. Per the nurse, patient is still stating that he does not have TB and he would like to leave. He is still complaining of abdominal pain. He stated that he vomited this morning 1. Reason For Visit: PNEUMONIA, MULTIPLE RIB FRACTURES, LUNG NODULES Physical Exam Vital Signs: Temp Pulse Resp BP Pulse Ox 97.7 F 113 H 16 109/82 96 10/13/17 08:05 10/13/17 08:05 10/13/17 08:05 10/13/17 08:05 10/13/17 08:05 Intake & Output 10/12/17 10/13/17 10/14/17 06:59 06:59 06:59 Intake Total 2906 755 Output Total 1026 300 Balance 1880 455 Weight 46 kg 45.3 kg General appearance: PRESENT: no acute distress, disheveled, thin Head exam: PRESENT: normocephalic Eye exam: PRESENT: EOMI. ABSENT: scleral icterus Teeth exam: PRESENT: poor dentation Neck exam: ABSENT: carotid bruit, JVD, lymphadenopathy, thyromegaly Respiratory exam: PRESENT: clear to auscultation roz. ABSENT: rales, rhonchi, wheezes Cardiovascular exam: PRESENT: RRR. ABSENT: diastolic murmur, rubs, systolic murmur GI/Abdominal exam: PRESENT: normal bowel sounds, soft. ABSENT: distended, guarding, mass, organolmegaly, rebound, tenderness Rectal exam: PRESENT: deferred Extremities exam: PRESENT: full ROM. ABSENT: calf tenderness, clubbing, pedal edema Neurological exam: PRESENT: alert, awake, oriented to person, oriented to place , oriented to time, oriented to situation, CN II-XII grossly intact. ABSENT: motor sensory deficit Psychiatric exam: PRESENT: flat affect. ABSENT: homicidal ideation, suicidal ideation Skin exam: PRESENT: dry, intact, skin tears - Itchiness of the skin on the back. Dry skin and erythema around the nunez., warm. ABSENT: cyanosis, rash Results Laboratory Results: 10/12/17 06:11 10/10/17 05:16 Impressions: Ribs w/Chest X-Ray 10/03/17 00:00 IMPRESSION: No pneumothorax. Rib fractures. Pulmonary findings as described. Chest CT 10/03/17 13:52 IMPRESSION: Acute right posterior 6th through 11th rib fractures. Adjacent right lower lobe airspace disease likely pulmonary contusion. No pneumothorax or pleural effusion Thick walled cavitary lesion in the right lung apex with multiple other smaller cavitary and non cavitary lung nodules bilaterally. Differential is ARJUN versus MTB versus sarcoid. Enlarged ascending thoracic aorta with thick wall left ventricle, question aortic stenosis Centrilobular emphysema in the upper lobes bilaterally Abdomen Ultrasound 10/08/17 13:44 IMPRESSION: NORMAL ABDOMINAL ULTRASOUND. KUB X-Ray 10/11/17 00:00 IMPRESSION: NO RADIOGRAPHIC EVIDENCE FOR ACUTE ABDOMINAL DISEASE. WELL-DEMARCATED EXPANSILE LESION LEFT SUPERIOR PUBIC RAMUS MOST LIKELY REPRESENTS A BENIGN BONE CYST OR ENCHONDROMA. RECOMMEND CORRELATION WITH PRIOR IMAGING IF AVAILABLE. CONSIDER FOLLOWUP OUTPATIENT CT OR MRI. 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 Patient currently on therapy. Pulmonology following. (2) Pulmonary cavitary lesion Is this a current diagnosis for this admission?: Yes Plan: AFBs positive and patient is being treated for possible TB. Health department made aware. (3) Pneumonia Qualifiers: Pneumonia type: due to unspecified organism Laterality: right Lung location: lower lobe of lung Qualified Code(s): J18.1 - Lobar pneumonia, unspecified organism Is this a current diagnosis for this admission?: Yes Plan: Streptococcus Pneumonia/H. Influenza. He has received 10 days of treatment as of 10/13/2017. (4) Ribs, multiple fractures Qualifiers: Encounter type: initial encounter Fracture type: closed Laterality: right Qualified Code(s): S22.41XA - Multiple fractures of ribs, right side, initial encounter for closed fracture Is this a current diagnosis for this admission?: Yes Plan: Pain not well controlled. Secondary to a fall patient fractured his right ribs 6 -11. Continue oxycontin but increase to 20 mg p.o. twice a day along with IR. Continue lidocaine patch. (5) Constipation Qualifiers: Constipation type: slow transit constipation Qualified Code(s): K59.01 - Slow transit constipation Is this a current diagnosis for this admission?: Yes Plan: Patient on colace. Continue PRN sorbitol. Patient had a bowel movement on . (6) Alcohol use Is this a current diagnosis for this admission?: Yes Plan: Continue valium, PRN ativan, thiamine, folate and multivitamin. Patient not showing any signs of withdrawal. Patient tachycardia may be more related to pain. (7) Tobacco abuse Is this a current diagnosis for this admission?: Yes Plan: Counseling on smoking cessation and nicotine patch. (8) Hyponatremia Is this a current diagnosis for this admission?: Yes Plan: Resolved. (9) Moderate protein-calorie malnutrition Is this a current diagnosis for this admission?: Yes Plan: Continue Megace and dietary supplements. (10) Fall Is this a current diagnosis for this admission?: Yes Plan: PT/OT consulted. (11) Leukocytosis Is this a current diagnosis for this admission?: Yes Plan: Patient currently being treated for pneumonia and TB. CBC is now trending down. This could be all reactive. Need to monitor patient for any signs of acute illness. (12) Abdominal pain Is this a current diagnosis for this admission?: Yes Plan: Likely secondary to medications. No acute findings on KUB. (13) DVT prophylaxis Is this a current diagnosis for this admission?: Yes Plan: SCD - Time Time Spent with patient: Less than 15 minutes - Inpatient Certification Medical Necessity: Need for Pain Control, Risk of Complication if Not Cared For in Hospital
[2017-10-13] MEDS ORDERED: DIAZEPAM 5 MG TABLET PO ONE (12:30)
[2017-10-13] MEDS: ACETAMINOPHEN 325 MG TABLET PO PRN (18:07)
[2017-10-13] MEDS: FAMOTIDINE 20 MG TABLET PO SCH (22:25)
[2017-10-13] MEDS: GABAPENTIN 300 MG CAPSULE PO SCH (22:25)
[2017-10-13] MEDS: TRAZODONE HCL 50 MG TABLET PO SCH (22:26)
[2017-10-13] MEDS: DIAZEPAM 5 MG TABLET PO SCH (22:26)
[2017-10-14] MEDS: ONDANSETRON HCL 8 MG TABLET PO SCH ×2 (00:17→05:50)
[2017-10-14] MEDS: OXYCODONE HCL IR 5 MG TABLET PO PRN ×4 (00:17→16:52)
[2017-10-14] MEDS: ACETAMINOPHEN 325 MG TABLET PO PRN (05:50)
[2017-10-14] MEDS ORDERED: METOPROLOL SUCCINATE 25 MG TAB.SR.24H PO SCH (07:30)
[2017-10-14] MEDS: RIFAMPIN 300 MG CAPSULE PO SCH (08:05)
[2017-10-14] MEDS: FOLIC ACID 1 MG TABLET PO SCH (10:51)
[2017-10-14] MEDS: GABAPENTIN 300 MG CAPSULE PO SCH ×2 (10:51→21:30)
[2017-10-14] MEDS: LIDOCAINE 5% (700 MG) TRANSDERMAL ADH..PATCH TP SCH (10:52)
[2017-10-14] MEDS: THIAMINE HCL 100 MG TABLET PO SCH (10:52)
[2017-10-14] MEDS: FAMOTIDINE 20 MG TABLET PO SCH ×2 (10:53→21:30)
[2017-10-14] MEDS: OXYCODONE HCL SR 10 MG TABLET PO SCH ×2 (10:53→21:30)
[2017-10-14] MEDS: PYRIDOXINE HCL 50 MG TABLET PO SCH (10:54)
[2017-10-14] MEDS: DOCUSATE SODIUM 100 MG CAPSULE PO SCH ×2 (10:54→18:10)
[2017-10-14] MEDS: MULTIVITAMIN TABLET PO SCH (10:54)
[2017-10-14] MEDS: DIAZEPAM 5 MG TABLET PO SCH ×2 (10:54→21:31)
[2017-10-14] MEDS: AZITHROMYCIN 250 MG TABLET PO SCH (10:55)
[2017-10-14] MEDS: MEGESTROL ACETATE SUSP 400 MG/10 ML UDCUP PO SCH (10:56)
[2017-10-14] MEDS: NICOTINE 21 MG/24 HR PATCH.TD24 TD SCH (10:59)
[2017-10-14] MEDS: ETHAMBUTOL HCL 400 MG TABLET PO SCH (10:59)
[2017-10-14] MEDS: KETOCONAZOLE 2% SHAMPOO 120 ML BOTTLE TP SCH (10:59)
[2017-10-14] MEDS: METOPROLOL SUCCINATE 50 MG TAB.SR.24H PO SCH (11:08)
[2017-10-14] MEDS: MAGNESIUM OXIDE 400 MG TABLET PO SCH (11:09)
--- NOTE | 2017-10-14 12:43 | PDOC PROGRESS REPORT ---
Subjective Progress Note for:: 10/14/17 Subjective:: Patient presented with right rib pain found to have multiple rib fractures which he sustained after a fall. Patient being treated for pneumonia. Patient with R apex cavitary lesion. 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 Patient no longer needs to be in isolation. Patient states that the little red pill is hurting his stomach. Patient is happy to get the new that he does not have TB. Patient states that he is not homeless. Reason For Visit: PNEUMONIA, MULTIPLE RIB FRACTURES, LUNG NODULES Physical Exam Vital Signs: Temp Pulse Resp BP Pulse Ox 97.2 F 98 20 133/76 H 86 L 10/14/17 08:09 10/14/17 08:09 10/14/17 08:09 10/14/17 08:09 10/14/17 08:09 Intake & Output 10/13/17 10/14/17 10/15/17 06:59 06:59 06:59 Intake Total 755 1024 Output Total 300 0 Balance 455 1024 Weight 45.3 kg 44.3 kg General appearance: PRESENT: no acute distress, thin Head exam: PRESENT: normocephalic Eye exam: PRESENT: EOMI. ABSENT: scleral icterus Teeth exam: PRESENT: poor dentation Neck exam: ABSENT: carotid bruit, JVD, lymphadenopathy, thyromegaly Respiratory exam: PRESENT: clear to auscultation roz. ABSENT: rales, rhonchi, wheezes Cardiovascular exam: PRESENT: RRR. ABSENT: diastolic murmur, rubs, systolic murmur GI/Abdominal exam: PRESENT: normal bowel sounds, soft, tenderness. ABSENT: distended, guarding, mass, organolmegaly, rebound Rectal exam: PRESENT: deferred Extremities exam: PRESENT: full ROM. ABSENT: calf tenderness, clubbing, pedal edema Neurological exam: PRESENT: alert, awake, oriented to person, oriented to place , oriented to time, oriented to situation, CN II-XII grossly intact. ABSENT: motor sensory deficit Psychiatric exam: PRESENT: appropriate affect, normal mood. ABSENT: homicidal ideation, suicidal ideation Skin exam: PRESENT: dry, intact, warm, other - blotchy skin on back and dry skin around nunez.. ABSENT: cyanosis, rash Results Laboratory Results: 10/12/17 06:11 10/10/17 05:16 10/06/17 08:09 Sputum AFB Smear Concentration - Final 10/06/17 08:09 Sputum Acid Fast Bacilli Smear - Final 10/06/17 08:09 Sputum Acid Fast Bacilli Culture & Smear - Final 10/06/17 08:09 Sputum M.tuberculosis Complex DNA Probe (M - Final 10/06/17 08:09 Sputum Mycobact. avium Complex DNA Probe M - Final 10/06/17 08:09 Sputum Mycobacterium kansasii DNA Probe (M - Final 10/06/17 08:09 Sputum Mycobacterium gordanae DNA Probe (M - Final 10/06/17 08:09 Sputum Specimen Comment (STEFAN) - Final 10/06/17 08:09 Sputum Microbiology Comment - Final 10/05/17 07:35 Sputum AFB Smear Concentration - Final 10/05/17 07:35 Sputum Acid Fast Bacilli Smear - Final 10/05/17 07:35 Sputum Acid Fast Bacilli Culture & Smear - Final 10/05/17 07:35 Sputum M.tuberculosis Complex DNA Probe (M - Final 10/05/17 07:35 Sputum Mycobact. avium Complex DNA Probe M - Final 10/05/17 07:35 Sputum Mycobacterium kansasii DNA Probe (M - Final 10/05/17 07:35 Sputum Mycobacterium gordanae DNA Probe (M - Final 10/05/17 07:35 Sputum Specimen Comment (STEFAN) - Final 10/05/17 07:35 Sputum Microbiology Comment - Final Impressions: Ribs w/Chest X-Ray 10/03/17 00:00 IMPRESSION: No pneumothorax. Rib fractures. Pulmonary findings as described. Chest CT 10/03/17 13:52 IMPRESSION: Acute right posterior 6th through 11th rib fractures. Adjacent right lower lobe airspace disease likely pulmonary contusion. No pneumothorax or pleural effusion Thick walled cavitary lesion in the right lung apex with multiple other smaller cavitary and non cavitary lung nodules bilaterally. Differential is ARJUN versus MTB versus sarcoid. Enlarged ascending thoracic aorta with thick wall left ventricle, question aortic stenosis Centrilobular emphysema in the upper lobes bilaterally Abdomen Ultrasound 10/08/17 13:44 IMPRESSION: NORMAL ABDOMINAL ULTRASOUND. KUB X-Ray 10/11/17 00:00 IMPRESSION: NO RADIOGRAPHIC EVIDENCE FOR ACUTE ABDOMINAL DISEASE. WELL-DEMARCATED EXPANSILE LESION LEFT SUPERIOR PUBIC RAMUS MOST LIKELY REPRESENTS A BENIGN BONE CYST OR ENCHONDROMA. RECOMMEND CORRELATION WITH PRIOR IMAGING IF AVAILABLE. CONSIDER FOLLOWUP OUTPATIENT CT OR MRI. 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 Patient cultures positive for MAC. Patient therapy adjusted to zithromycin, ethambutol and rifampin. Patient also on pyridoxine. Patient will require 12 month of therapy. Discussed with Dr. Tucker who requested that I contact the health department see if they would do DOT for MAC. Patient will follow up with Dr. Tucker on discharge. Patient taken out of isolation. (2) Pulmonary cavitary lesion Is this a current diagnosis for this admission?: Yes Plan: There to MAC. Patient currently undergoing therapy. Please refer to therapy as dictated in the previous problem. Patient taken out of isolation. (3) Pneumonia Qualifiers: Pneumonia type: due to unspecified organism Laterality: right Lung location: lower lobe of lung Qualified Code(s): J18.1 - Lobar pneumonia, unspecified organism Is this a current diagnosis for this admission?: Yes Plan: Streptococcus Pneumonia/H. Influenza. He has received 10 days of treatment as of 10/13/2017. (4) Ribs, multiple fractures Qualifiers: Encounter type: initial encounter Fracture type: closed Laterality: right Qualified Code(s): S22.41XA - Multiple fractures of ribs, right side, initial encounter for closed fracture Is this a current diagnosis for this admission?: Yes Plan: Pain not well controlled. Secondary to a fall patient fractured his right ribs 6 -11. Continue oxycontin but increase to 20 mg p.o. twice a day along with IR. Continue lidocaine patch. (5) Constipation Qualifiers: Constipation type: slow transit constipation Qualified Code(s): K59.01 - Slow transit constipation Is this a current diagnosis for this admission?: Yes Plan: Patient on colace. Continue PRN sorbitol. Patient had a bowel movement on . (6) Alcohol use Is this a current diagnosis for this admission?: Yes Plan: Continue valium, PRN ativan, thiamine, folate and multivitamin. Patient not showing any signs of withdrawal. Patient tachycardia may be more related to pain. (7) Tobacco abuse Is this a current diagnosis for this admission?: Yes Plan: Counseling on smoking cessation and nicotine patch. (8) Hyponatremia Is this a current diagnosis for this admission?: Yes Plan: Resolved. (9) Moderate protein-calorie malnutrition Is this a current diagnosis for this admission?: Yes Plan: Continue Megace and dietary supplements. He is eating well. (10) Fall Is this a current diagnosis for this admission?: Yes Plan: PT/OT consulted. (11) Leukocytosis Is this a current diagnosis for this admission?: Yes Plan: Patient currently being treated for pneumonia and MAC. CBC is now trending down. This could be all reactive. Need to monitor patient for any signs of acute illness. (12) Abdominal pain Is this a current diagnosis for this admission?: Yes Plan: Likely secondary to medications for he MAC therapy. (13) DVT prophylaxis Is this a current diagnosis for this admission?: Yes Plan: SCD - Time Time Spent with patient: Less than 15 minutes Within: within 24 hours
[2017-10-14] MEDS: LORAZEPAM 1 MG TABLET PO PRN (16:52)
--- NOTE | 2017-10-14 20:16 | PDOC PROGRESS REPORT ---
Subjective Progress Note for:: 10/10/17 Subjective:: Awake without complaint,concedes that he may have TB Reason For Visit: PNEUMONIA, MULTIPLE RIB FRACTURES, LUNG NODULES Physical Exam Vital Signs: Temp Pulse Resp BP Pulse Ox 98.7 F 101 H 22 H 112/70 95 10/11/17 07:47 10/11/17 07:47 10/11/17 07:47 10/11/17 07:47 10/11/17 07:47 Intake & Output 10/10/17 10/11/17 10/12/17 06:59 06:59 06:59 Intake Total 4901 3514 Output Total 975 1305 Balance 3926 2209 Weight 47.9 kg 47 kg General appearance: PRESENT: no acute distress, cooperative, disheveled, thin, well-developed, well-nourished. ABSENT: mild distress, morbidly obese, obese, severe distress Head exam: PRESENT: atraumatic, normocephalic Eye exam: PRESENT: conjunctiva pale, EOMI. ABSENT: conjunctival injection, conjunctiva pink, periorbital swelling Mouth exam: PRESENT: dry mucosa, neck supple. ABSENT: laceration, moist Neck exam: ABSENT: carotid bruit, JVD, lymphadenopathy, thyromegaly, tracheal deviation, tracheostomy Respiratory exam: PRESENT: decreased breath sounds, prolonged expiratory phas, rales, rhonchi, other. ABSENT: accessory muscle use, chest wall tenderness, clear to auscultation roz, crackles Cardiovascular exam: PRESENT: RRR, +S1 Pulses: PRESENT: normal radial pulses GI/Abdominal exam: PRESENT: normal bowel sounds, soft. ABSENT: distended, guarding, mass, organolmegaly, rebound, tenderness Extremities exam: ABSENT: clubbing, joint swelling Musculoskeletal exam: ABSENT: deformity, dislocation Neurological exam: PRESENT: awake Skin exam: PRESENT: dry, warm Results Laboratory Results: 10/10/17 05:16 10/10/17 05:16 10/07/17 14:20 Sputum AFB Smear Concentration - Final 10/07/17 14:20 Sputum Acid Fast Bacilli Smear - Final Impressions: Ribs w/Chest X-Ray 10/03/17 00:00 IMPRESSION: No pneumothorax. Rib fractures. Pulmonary findings as described. Chest CT 10/03/17 13:52 IMPRESSION: Acute right posterior 6th through 11th rib fractures. Adjacent right lower lobe airspace disease likely pulmonary contusion. No pneumothorax or pleural effusion Thick walled cavitary lesion in the right lung apex with multiple other smaller cavitary and non cavitary lung nodules bilaterally. Differential is ARJUN versus MTB versus sarcoid. Enlarged ascending thoracic aorta with thick wall left ventricle, question aortic stenosis Centrilobular emphysema in the upper lobes bilaterally Abdomen Ultrasound 10/08/17 13:44 IMPRESSION: NORMAL ABDOMINAL ULTRASOUND. Assessment & Plan - Diagnosis (1) Moderate protein-calorie malnutrition Is this a current diagnosis for this admission?: Yes Plan: consider nutritional consult (2) Pulmonary cavitary lesion Is this a current diagnosis for this admission?: Yes Plan: +1 & +2 AFBs smears;no hemoptysis,PPD (3) Ribs, multiple fractures Qualifiers: Encounter type: initial encounter Fracture type: closed Laterality: right Qualified Code(s): S22.41XA - Multiple fractures of ribs, right side, initial encounter for closed fracture Is this a current diagnosis for this admission?: Yes Plan: less pain (4) Acid-fast bacteria present Is this a current diagnosis for this admission?: Yes Plan: MAC on abx
--- NOTE | 2017-10-14 20:20 | PDOC PROGRESS REPORT ---
Subjective Progress Note for:: 10/14/17 Subjective:: Awake without complaint,concedes that he may have TB Reason For Visit: PNEUMONIA, MULTIPLE RIB FRACTURES, LUNG NODULES Physical Exam Vital Signs: Temp Pulse Resp BP Pulse Ox 97.9 F 112 H 24 H 133/94 H 96 10/14/17 05:29 10/14/17 07:00 10/14/17 05:29 10/14/17 05:29 10/14/17 05:29 Intake & Output 10/13/17 10/14/17 10/15/17 06:59 06:59 06:59 Intake Total 755 1024 Output Total 300 0 Balance 455 1024 Weight 45.3 kg 44.3 kg General appearance: PRESENT: no acute distress, cooperative, disheveled, thin Head exam: PRESENT: atraumatic, normocephalic Eye exam: PRESENT: conjunctiva pale, EOMI. ABSENT: conjunctival injection, conjunctiva pink, nystagmus Mouth exam: PRESENT: dry mucosa, neck supple, tongue midline. ABSENT: laceration, moist Teeth exam: PRESENT: poor dentation Neck exam: ABSENT: carotid bruit, JVD, lymphadenopathy, thyromegaly, tracheal deviation, tracheostomy Respiratory exam: PRESENT: accessory muscle use, crackles, decreased breath sounds, prolonged expiratory phas, rhonchi, symmetrical, unlabored. ABSENT: chest wall tenderness, clear to auscultation roz, rales, retraction, stridor, tachypnea Cardiovascular exam: PRESENT: RRR, +S1, +S2 Pulses: PRESENT: normal radial pulses GI/Abdominal exam: PRESENT: normal bowel sounds, soft. ABSENT: distended, guarding, mass, organolmegaly, rebound, tenderness Extremities exam: ABSENT: clubbing, joint swelling Musculoskeletal exam: ABSENT: deformity, dislocation Neurological exam: PRESENT: awake Results Laboratory Results: 10/12/17 06:11 10/10/17 05:16 10/06/17 08:09 Sputum AFB Smear Concentration - Final 10/06/17 08:09 Sputum Acid Fast Bacilli Smear - Final 10/06/17 08:09 Sputum Acid Fast Bacilli Culture & Smear - Final 10/06/17 08:09 Sputum M.tuberculosis Complex DNA Probe (M - Final 10/06/17 08:09 Sputum Mycobact. avium Complex DNA Probe M - Final 10/06/17 08:09 Sputum Mycobacterium kansasii DNA Probe (M - Final 10/06/17 08:09 Sputum Mycobacterium gordanae DNA Probe (M - Final 10/06/17 08:09 Sputum Specimen Comment (STEFAN) - Final 10/06/17 08:09 Sputum Microbiology Comment - Final 10/05/17 07:35 Sputum AFB Smear Concentration - Final 10/05/17 07:35 Sputum Acid Fast Bacilli Smear - Final 10/05/17 07:35 Sputum Acid Fast Bacilli Culture & Smear - Final 10/05/17 07:35 Sputum M.tuberculosis Complex DNA Probe (M - Final 10/05/17 07:35 Sputum Mycobact. avium Complex DNA Probe M - Final 10/05/17 07:35 Sputum Mycobacterium kansasii DNA Probe (M - Final 10/05/17 07:35 Sputum Mycobacterium gordanae DNA Probe (M - Final 10/05/17 07:35 Sputum Specimen Comment (STEFAN) - Final 10/05/17 07:35 Sputum Microbiology Comment - Final Impressions: Ribs w/Chest X-Ray 10/03/17 00:00 IMPRESSION: No pneumothorax. Rib fractures. Pulmonary findings as described. Chest CT 10/03/17 13:52 IMPRESSION: Acute right posterior 6th through 11th rib fractures. Adjacent right lower lobe airspace disease likely pulmonary contusion. No pneumothorax or pleural effusion Thick walled cavitary lesion in the right lung apex with multiple other smaller cavitary and non cavitary lung nodules bilaterally. Differential is ARJUN versus MTB versus sarcoid. Enlarged ascending thoracic aorta with thick wall left ventricle, question aortic stenosis Centrilobular emphysema in the upper lobes bilaterally Abdomen Ultrasound 10/08/17 13:44 IMPRESSION: NORMAL ABDOMINAL ULTRASOUND. KUB X-Ray 10/11/17 00:00 IMPRESSION: NO RADIOGRAPHIC EVIDENCE FOR ACUTE ABDOMINAL DISEASE. WELL-DEMARCATED EXPANSILE LESION LEFT SUPERIOR PUBIC RAMUS MOST LIKELY REPRESENTS A BENIGN BONE CYST OR ENCHONDROMA. RECOMMEND CORRELATION WITH PRIOR IMAGING IF AVAILABLE. CONSIDER FOLLOWUP OUTPATIENT CT OR MRI. Assessment & Plan - Diagnosis (1) Moderate protein-calorie malnutrition Is this a current diagnosis for this admission?: Yes Plan: consider nutritional consult (2) Pulmonary cavitary lesion Is this a current diagnosis for this admission?: Yes Plan: +1 & +2 AFBs smears;no hemoptysis,PPD (3) Ribs, multiple fractures Qualifiers: Encounter type: initial encounter Fracture type: closed Laterality: right Qualified Code(s): S22.41XA - Multiple fractures of ribs, right side, initial encounter for closed fracture Is this a current diagnosis for this admission?: Yes Plan: less pain (4) Acid-fast bacteria present Is this a current diagnosis for this admission?: Yes Plan: Labs- All tests 24 hr 10/05/17 10/06/17 10/06/17 07:35 08:02 08:09 HIV 1&2 Antibody NEGATIVE AFB Smear 1+ ACID FAST BACILLI 2+ ACID FAST BACILLI 10/03/17 19:15 Gram Stain - Final Sputum Sputum Culture - Final Streptococcus Pneumoniae Haemophilus Influenzae Normal Alee Absent
--- NOTE | 2017-10-14 20:21 | PDOC PROGRESS REPORT ---
Subjective Progress Note for:: 10/09/17 Subjective:: Awake without complaint,concedes that he may have TB Reason For Visit: PNEUMONIA, MULTIPLE RIB FRACTURES, LUNG NODULES Physical Exam Vital Signs: Temp Pulse Resp BP Pulse Ox 98.7 F 101 H 22 H 112/70 95 10/11/17 07:47 10/11/17 07:47 10/11/17 07:47 10/11/17 07:47 10/11/17 07:47 Intake & Output 10/10/17 10/11/17 10/12/17 06:59 06:59 06:59 Intake Total 4901 3514 Output Total 975 1305 Balance 3926 2209 Weight 47.9 kg 47 kg General appearance: PRESENT: no acute distress, cooperative, disheveled, thin, well-developed Head exam: PRESENT: atraumatic, normocephalic Eye exam: PRESENT: conjunctiva pale, EOMI Mouth exam: PRESENT: dry mucosa, neck supple, tongue midline Neck exam: ABSENT: carotid bruit, JVD, lymphadenopathy, thyromegaly, tracheal deviation, tracheostomy Respiratory exam: PRESENT: decreased breath sounds, prolonged expiratory phas, rhonchi, symmetrical, unlabored. ABSENT: accessory muscle use, chest wall tenderness, clear to auscultation roz, crackles, rales, retraction, stridor, tachypnea, wheezes Cardiovascular exam: PRESENT: RRR, +S1, +S2. ABSENT: irregular rhythm, rubs Pulses: PRESENT: normal radial pulses GI/Abdominal exam: PRESENT: normal bowel sounds, soft. ABSENT: distended, guarding, mass, organolmegaly, rebound, tenderness Extremities exam: ABSENT: clubbing, joint swelling Musculoskeletal exam: ABSENT: deformity, dislocation Neurological exam: PRESENT: alert, awake. ABSENT: altered Psychiatric exam: PRESENT: flat affect Skin exam: PRESENT: dry, warm Results Laboratory Results: 10/10/17 05:16 10/10/17 05:16 10/07/17 14:20 Sputum AFB Smear Concentration - Final 10/07/17 14:20 Sputum Acid Fast Bacilli Smear - Final Impressions: Ribs w/Chest X-Ray 10/03/17 00:00 IMPRESSION: No pneumothorax. Rib fractures. Pulmonary findings as described. Chest CT 10/03/17 13:52 IMPRESSION: Acute right posterior 6th through 11th rib fractures. Adjacent right lower lobe airspace disease likely pulmonary contusion. No pneumothorax or pleural effusion Thick walled cavitary lesion in the right lung apex with multiple other smaller cavitary and non cavitary lung nodules bilaterally. Differential is ARJUN versus MTB versus sarcoid. Enlarged ascending thoracic aorta with thick wall left ventricle, question aortic stenosis Centrilobular emphysema in the upper lobes bilaterally Abdomen Ultrasound 10/08/17 13:44 IMPRESSION: NORMAL ABDOMINAL ULTRASOUND. Assessment & Plan - Diagnosis (1) Moderate protein-calorie malnutrition Is this a current diagnosis for this admission?: Yes Plan: consider nutritional consult (2) Pulmonary cavitary lesion Is this a current diagnosis for this admission?: Yes Plan: +1 & +2 AFBs smears;no hemoptysis,PPD (3) Ribs, multiple fractures Qualifiers: Encounter type: initial encounter Fracture type: closed Laterality: right Qualified Code(s): S22.41XA - Multiple fractures of ribs, right side, initial encounter for closed fracture Is this a current diagnosis for this admission?: Yes Plan: less pain (4) Acid-fast bacteria present Is this a current diagnosis for this admission?: Yes Plan: Labs- All tests 24 hr 10/05/17 10/06/17 10/06/17 07:35 08:02 08:09 HIV 1&2 Antibody NEGATIVE AFB Smear 1+ ACID FAST BACILLI 2+ ACID FAST BACILLI 10/03/17 19:15 Gram Stain - Final Sputum Sputum Culture - Final Streptococcus Pneumoniae Haemophilus Influenzae Normal Alee Absent
[2017-10-14] MEDS: TRAZODONE HCL 50 MG TABLET PO SCH (21:30)
[2017-10-15] MEDS: OXYCODONE HCL IR 5 MG TABLET PO PRN (03:57)
[2017-10-15] MEDS: LORAZEPAM 1 MG TABLET PO PRN (03:57)
[2017-10-15 08:57] LABS: HEMATOCRIT 35.9 % (37.9-51.0); HEMOGLOBIN 12.1 g/dL (13.5-17.0); MEAN CORPUSCULAR HEMOGLOBIN 29.7 pg (27.0-33.4); MEAN CORPUSCULAR HGB CONC 33.6 g/dL (32.0-36.0); MEAN CORPUSCULAR VOLUME 88 fl (80-97); RED BLOOD COUNT 4.06 10^6/uL (4.35-5.55); RED CELL DISTRIBUTION WIDTH 16.2 % (11.5-14.0); WHITE BLOOD COUNT 12.8 10^3/uL (4.0-10.5)
[2017-10-15 09:35] LABS: ABSOLUTE LYMPHOCYTES# (MANUAL) 0.9 10^3/uL (0.5-4.7); ABSOLUTE MONOCYTES # (MANUAL) 2.8 10^3/uL (0.1-1.4); ABSOLUTE NEUTROPHILS# (MANUAL) 8.7 10^3/uL (1.7-8.2); ANISOCYTOSIS 1+; BAND NEUTROPHILS % (MANUAL) 1 % (3-5); BASOPHILS % (MANUAL) 2 % (0-2); EOSINOPHILS % (MANUAL) 1 % (0-6); LYMPHOCYTES % (MANUAL) 6 % (13-45); MONOCYTES % (MANUAL) 22 % (3-13); PLATELET CLUMPS PRESENT; PLATELET COMMENT INCREASED; PLATELET GIANT PRESENT; PLATELET LARGE PRESENT; POLYCHROMASIA SLIGHT; SEGMENTED NEUTROPHILS % (MAN) 67 % (42-78); TOTAL CELLS COUNTED 100; TOXIC GRANULATION 1+; TOXIC VACUOLATION PRESENT
[2017-10-15 09:37] LABS: PLATELET COUNT 1355 10^3/uL (150-450)
[2017-10-15] MEDS ORDERED: ASPIRIN 325 MG TABLET PO SCH (10:00)
[2017-10-15] MEDS: NICOTINE 21 MG/24 HR PATCH.TD24 TD SCH (10:43)
[2017-10-15] MEDS: MEGESTROL ACETATE SUSP 400 MG/10 ML UDCUP PO SCH (10:43)
[2017-10-15] MEDS: AZITHROMYCIN 250 MG TABLET PO SCH (10:45)
[2017-10-15] MEDS: FOLIC ACID 1 MG TABLET PO SCH (10:46)
[2017-10-15] MEDS: THIAMINE HCL 100 MG TABLET PO SCH (10:46)
[2017-10-15] MEDS: PYRIDOXINE HCL 50 MG TABLET PO SCH (10:46)
[2017-10-15] MEDS: DOCUSATE SODIUM 100 MG CAPSULE PO SCH (10:46)
[2017-10-15] MEDS: GABAPENTIN 300 MG CAPSULE PO SCH (10:46)
[2017-10-15] MEDS: MULTIVITAMIN TABLET PO SCH (10:46)
[2017-10-15] MEDS: METOPROLOL SUCCINATE 50 MG TAB.SR.24H PO SCH (10:46)
[2017-10-15] MEDS: OXYCODONE HCL SR 10 MG TABLET PO SCH (10:47)
[2017-10-15] MEDS: MAGNESIUM OXIDE 400 MG TABLET PO SCH (10:47)
[2017-10-15] MEDS: DIAZEPAM 5 MG TABLET PO SCH (10:47)
[2017-10-15] MEDS: FAMOTIDINE 20 MG TABLET PO SCH (10:48)
[2017-10-15] MEDS: ETHAMBUTOL HCL 400 MG TABLET PO SCH (10:48)
[2017-10-15] MEDS: LIDOCAINE 5% (700 MG) TRANSDERMAL ADH..PATCH TP SCH (10:49)
[2017-10-15] MEDS: KETOCONAZOLE 2% SHAMPOO 120 ML BOTTLE TP SCH (11:01)
--- NOTE | 2017-10-15 11:06 | PDOC PROGRESS REPORT ---
Subjective Progress Note for:: 10/15/17 Subjective:: Do you have any medicine for my back pain Reason For Visit: PNEUMONIA, MULTIPLE RIB FRACTURES, LUNG NODULES Physical Exam Vital Signs: Temp Pulse Resp BP Pulse Ox 98.3 F 111 H 20 125/69 99 10/15/17 03:46 10/15/17 03:46 10/15/17 03:46 10/15/17 03:46 10/15/17 03:46 Intake & Output 10/14/17 10/15/17 10/16/17 06:59 06:59 06:59 Intake Total 1024 1407 Output Total 0 0 Balance 1024 1407 Weight 44.3 kg 44.9 kg General appearance: PRESENT: no acute distress, cooperative, disheveled, thin. ABSENT: hard of hearing, mild distress, morbidly obese, obese, severe distress Head exam: PRESENT: atraumatic, normocephalic Eye exam: PRESENT: conjunctiva pale, EOMI. ABSENT: conjunctival injection, conjunctiva pink, nystagmus, periorbital swelling, scleral icterus Mouth exam: PRESENT: dry mucosa, neck supple, tongue midline. ABSENT: laceration, moist Teeth exam: PRESENT: poor dentation Neck exam: ABSENT: carotid bruit, JVD, lymphadenopathy, thyromegaly, tracheal deviation Respiratory exam: PRESENT: crackles, decreased breath sounds, prolonged expiratory phas, rhonchi, symmetrical, unlabored. ABSENT: accessory muscle use , chest wall tenderness, clear to auscultation roz, rales, retraction, stridor, tachypnea Cardiovascular exam: PRESENT: RRR, +S1, +S2. ABSENT: rubs Pulses: PRESENT: normal radial pulses GI/Abdominal exam: PRESENT: normal bowel sounds, soft. ABSENT: distended, guarding, mass, organolmegaly, rebound, tenderness Extremities exam: ABSENT: clubbing, joint swelling Musculoskeletal exam: PRESENT: ambulatory. ABSENT: deformity, dislocation Neurological exam: PRESENT: alert, awake Psychiatric exam: PRESENT: flat affect Skin exam: PRESENT: dry, warm Results Laboratory Results: 10/12/17 06:11 10/10/17 05:16 10/07/17 14:20 Sputum AFB Smear Concentration - Final 10/07/17 14:20 Sputum Acid Fast Bacilli Smear - Final 10/06/17 08:09 Sputum AFB Smear Concentration - Final 10/06/17 08:09 Sputum Acid Fast Bacilli Smear - Final 10/06/17 08:09 Sputum Acid Fast Bacilli Culture & Smear - Final 10/06/17 08:09 Sputum M.tuberculosis Complex DNA Probe (M - Final 10/06/17 08:09 Sputum Mycobact. avium Complex DNA Probe M - Final 10/06/17 08:09 Sputum Mycobacterium kansasii DNA Probe (M - Final 10/06/17 08:09 Sputum Mycobacterium gordanae DNA Probe (M - Final 10/06/17 08:09 Sputum Specimen Comment (STEFAN) - Final 10/06/17 08:09 Sputum Microbiology Comment - Final 10/05/17 07:35 Sputum AFB Smear Concentration - Final 10/05/17 07:35 Sputum Acid Fast Bacilli Smear - Final 10/05/17 07:35 Sputum Acid Fast Bacilli Culture & Smear - Final 10/05/17 07:35 Sputum M.tuberculosis Complex DNA Probe (M - Final 10/05/17 07:35 Sputum Mycobact. avium Complex DNA Probe M - Final 10/05/17 07:35 Sputum Mycobacterium kansasii DNA Probe (M - Final 10/05/17 07:35 Sputum Mycobacterium gordanae DNA Probe (M - Final 10/05/17 07:35 Sputum Specimen Comment (STEFAN) - Final 10/05/17 07:35 Sputum Microbiology Comment - Final Impressions: Ribs w/Chest X-Ray 10/03/17 00:00 IMPRESSION: No pneumothorax. Rib fractures. Pulmonary findings as described. Chest CT 10/03/17 13:52 IMPRESSION: Acute right posterior 6th through 11th rib fractures. Adjacent right lower lobe airspace disease likely pulmonary contusion. No pneumothorax or pleural effusion Thick walled cavitary lesion in the right lung apex with multiple other smaller cavitary and non cavitary lung nodules bilaterally. Differential is ARJUN versus MTB versus sarcoid. Enlarged ascending thoracic aorta with thick wall left ventricle, question aortic stenosis Centrilobular emphysema in the upper lobes bilaterally Abdomen Ultrasound 10/08/17 13:44 IMPRESSION: NORMAL ABDOMINAL ULTRASOUND. KUB X-Ray 10/11/17 00:00 IMPRESSION: NO RADIOGRAPHIC EVIDENCE FOR ACUTE ABDOMINAL DISEASE. WELL-DEMARCATED EXPANSILE LESION LEFT SUPERIOR PUBIC RAMUS MOST LIKELY REPRESENTS A BENIGN BONE CYST OR ENCHONDROMA. RECOMMEND CORRELATION WITH PRIOR IMAGING IF AVAILABLE. CONSIDER FOLLOWUP OUTPATIENT CT OR MRI. Assessment & Plan - Diagnosis (1) Moderate protein-calorie malnutrition Is this a current diagnosis for this admission?: Yes Plan: Consuming food well (2) Pulmonary cavitary lesion Is this a current diagnosis for this admission?: Yes Plan: Antibiotics have been started (3) Ribs, multiple fractures Qualifiers: Encounter type: initial encounter Fracture type: closed Laterality: right Qualified Code(s): S22.41XA - Multiple fractures of ribs, right side, initial encounter for closed fracture Is this a current diagnosis for this admission?: Yes Plan: less pain (4) Acid-fast bacteria present Is this a current diagnosis for this admission?: Yes Plan: Labs- All tests 24 hr 10/05/17 10/06/17 10/06/17 07:35 08:02 08:09 HIV 1&2 Antibody NEGATIVE AFB Smear 1+ ACID FAST BACILLI 2+ ACID FAST BACILLI 10/03/17 19:15 Gram Stain - Final Sputum Sputum Culture - Final Streptococcus Pneumoniae Haemophilus Influenzae Normal Alee Absent (5) Tobacco abuse Is this a current diagnosis for this admission?: Yes Plan: Smoking in the room
[2017-10-15 12:41] VITALS: BP 141/69
[2017-10-15 13:53] LABS: PATH REVIEW PATHOLOGIST REVIEWED
--- NOTE | 2017-10-15 14:47 | PDOC DISCHARGE SUMMARY ---
General - Admit/Disc Date/PCP Admission Date/Primary Care Provider: 10/03/17 17:32 Discharge Date: 10/15/17 - Discharge Diagnosis (1) Acid-fast bacteria present Is this a current diagnosis for this admission?: Yes (2) Pulmonary cavitary lesion Is this a current diagnosis for this admission?: Yes (3) Pneumonia Is this a current diagnosis for this admission?: Yes (4) Ribs, multiple fractures Is this a current diagnosis for this admission?: Yes (5) Constipation Is this a current diagnosis for this admission?: Yes (6) Alcohol use Is this a current diagnosis for this admission?: Yes (7) Tobacco abuse Is this a current diagnosis for this admission?: Yes (8) Hyponatremia Is this a current diagnosis for this admission?: Yes (9) Moderate protein-calorie malnutrition Is this a current diagnosis for this admission?: Yes (10) Fall Is this a current diagnosis for this admission?: Yes (11) Leukocytosis Is this a current diagnosis for this admission?: Yes (12) Abdominal pain Is this a current diagnosis for this admission?: Yes (13) DVT prophylaxis Is this a current diagnosis for this admission?: Yes - Additional Information Resuscitation Status: Full Code Discharge Diet: As Tolerated Discharge Activity: Activity As Tolerated, Balance Activity w/Rest Prescriptions: Azithromycin [Zithromax Tri-Wilfredo] 500 mg PO DAILY #30 pkg Ethambutol HCl [Myambutol 400 mg Tablet] 800 mg PO DAILY 30 Days #60 tablet Metoprolol Succinate [Toprol Xl 50 mg Tab.sr] 50 mg PO DAILY #30 tab.sr.24h Oxycodone HCl/Acetaminophen [Percocet 5-325 mg Tablet] 1 tab PO ASDIR PRN #15 tab PRN Reason: Promethazine HCl [Phenergan 25 mg Tablet] 25 mg PO Q4HP PRN #20 tablet PRN Reason: Rifampin [Rifadin 300 mg Capsule] 600 mg PO ACBRKFST 30 Days #60 capsule Home Medications: Aspirin [Aspirin 325 mg Tablet] 325 mg PO DAILY tablet 10/15/17 Azithromycin [Zithromax Tri-Wilfredo] 500 mg PO DAILY #30 pkg 10/15/17 Ethambutol HCl [Myambutol 400 mg Tablet] 800 mg PO DAILY 30 Days #60 tablet Metoprolol Succinate [Toprol Xl 50 mg Tab.sr] 50 mg PO DAILY #30 tab.sr.24h Oxycodone HCl/Acetaminophen [Percocet 5-325 mg Tablet] 1 tab PO ASDIR PRN #15 tab 10/15/17 Promethazine HCl [Phenergan 25 mg Tablet] 25 mg PO Q4HP PRN #20 tablet 10/15/17 Rifampin [Rifadin 300 mg Capsule] 600 mg PO ACBRKFST 30 Days #60 capsule History of Present Illness History of Present Illness: VICTORINO HENRIQUEZ is a 57 year old male with no know medical history as he does not follow with a doctor. Patient states that on FridaySeptember 28, he was walking outside down the steps which were wet. Patient sleep and fell. Patient immediately felt pain but did not come to the hospital immediately because he thought the pain would go away. Patient denies any fever, chills, cough or shortness of breath. He only has pain. He denies coughing up blood, night sweats or significant weight loss. Patient has been in and out of intermediate but had not been in over 2 years. 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 He has smoked since the age of 14. In the ED patient found to have leukocytosis 24,000. CT scan of chest demonstrated right rib fractures and cavitary lesion and nodules in the lungs. Hospitalist called to admit patient for treatment of his pneumonia and pain management. The original H&P was dictated by Dr. Shantal Johnson discharging physician. Hospital Course Hospital Course: He was admitted to the hospital originally for right-sided pain and was found to have multiple rib fractures. The CT scan also revealed cavitary lesions and nodules on the right side of the lungs. There was concern that patient may have TB. Patient was placed in isolation and AFBs were collected. Patient was also being treated for pneumonia with Levaquin. Sputum culture was later found to grow Streptococcus pneumonia and H influenza. As stated before patient was treated with Levaquin and completed 10 days of treatment. Patient leukocytosis significantly improved prior to discharge. Patient also was started on rifampin , ethambutol, isoniazid. Health department was also notified. Patient if the cultures returned on 10/14/2017 and was positive for Mycobacterium avium. Patient therapy was switched to azithromycin, rifampin and ethambutol. Unfortunately patient developed side effects from the antituberculosis medication which consisted of abdominal pain. this improve during hospitalization patient was HIV negative. Patient to had a history of alcohol abuse and may have shown some signs of withdrawal during hospitalization. Patient was treated with Valium scheduled and as needed Ativan. Patient was having some tachycardia for which he was started on metoprolol. Patient has history of tobacco abuse and was counseled on tobacco cessation. Patient was given a nicotine patch however continue to smoke within the hospital. Also presented with hyponatremia most likely secondary to alcohol use and/or dehydration or acute infection.. This did resolve with normal saline. Patient with moderate protein calorie malnutrition was started on Megace patient was eating fairly well prior to discharge. Patient last documented albumin was 3.2 with a BMI of 16. He also has a mild hypomagnesemia of 1.6 for which she was given replacement. As patient did have a fall resulting in rib fractures PT was consulted. Patient did well with physical therapy. Thrombocytosis. Patient has thrombo-cytosis most likely reactive to his infection. Patient was started on a high-dose aspirin. This was present on admission however continue to trend up. Patient does not have a PCP however was referred to that care in community [facility]. Patient was also referred to Dr. Tucker. Discharge planning was specifically consulted to help patient with the back therapy which consist of azithromycin, rifampin and ethambutol. Patient is supposed be on this therapy for 12 months. He was given 3 refills. Did contact health department who stated that they do not do DOT for MAC. Patient is doing well and was discharged home. Physical Exam Vital Signs: Temp Pulse Resp BP Pulse Ox 98.2 F 112 H 16 141/69 H 96 10/15/17 12:28 10/15/17 12:28 10/15/17 12:28 10/15/17 12:28 10/15/17 12:28 Intake & Output 10/14/17 10/15/17 10/16/17 06:59 06:59 06:59 Intake Total 1024 1407 Output Total 0 0 Balance 1024 1407 Weight 44.3 kg 44.9 kg General appearance: PRESENT: no acute distress, thin Head exam: PRESENT: normocephalic Eye exam: PRESENT: EOMI. ABSENT: scleral icterus Ear exam: PRESENT: normal external ear exam Mouth exam: PRESENT: moist Neck exam: ABSENT: carotid bruit, JVD, lymphadenopathy, thyromegaly Respiratory exam: PRESENT: clear to auscultation roz. ABSENT: rales, rhonchi, wheezes Cardiovascular exam: PRESENT: RRR. ABSENT: diastolic murmur, rubs, systolic murmur Pulses: PRESENT: normal dorsalis pedis pul Vascular exam: PRESENT: normal capillary refill GI/Abdominal exam: PRESENT: normal bowel sounds, soft. ABSENT: distended, guarding, mass, organolmegaly, rebound, tenderness Rectal exam: PRESENT: deferred Extremities exam: PRESENT: full ROM. ABSENT: calf tenderness, clubbing, pedal edema Neurological exam: PRESENT: alert, awake, oriented to person, oriented to place , oriented to time, oriented to situation, CN II-XII grossly intact. ABSENT: motor sensory deficit Psychiatric exam: PRESENT: appropriate affect, normal mood. ABSENT: homicidal ideation, suicidal ideation Skin exam: PRESENT: dry, intact, warm, other - Blotchy skin on his back. Seborrheic dermatitis especially in the bearded area.. ABSENT: cyanosis, rash Results Laboratory Results: 10/15/17 08:38 10/10/17 05:16 10/15/17 08:38 WBC 12.8 H RBC 4.06 L Hgb 12.1 L Hct 35.9 L MCV 88 MCH 29.7 MCHC 33.6 RDW 16.2 H Plt Count 1355 H* Seg Neutrophils % Not Reportable Lymphocytes % Not Reportable Monocytes % Not Reportable Eosinophils % Not Reportable Basophils % Not Reportable Absolute Neutrophils Not Reportable Absolute Lymphocytes Not Reportable Absolute Monocytes Not Reportable Absolute Eosinophils Not Reportable Absolute Basophils Not Reportable 10/07/17 14:20 Sputum AFB Smear Concentration - Final 10/07/17 14:20 Sputum Acid Fast Bacilli Smear - Final Impressions: Ribs w/Chest X-Ray 10/03/17 00:00 IMPRESSION: No pneumothorax. Rib fractures. Pulmonary findings as described. Chest CT 10/03/17 13:52 IMPRESSION: Acute right posterior 6th through 11th rib fractures. Adjacent right lower lobe airspace disease likely pulmonary contusion. No pneumothorax or pleural effusion Thick walled cavitary lesion in the right lung apex with multiple other smaller cavitary and non cavitary lung nodules bilaterally. Differential is ARJUN versus MTB versus sarcoid. Enlarged ascending thoracic aorta with thick wall left ventricle, question aortic stenosis Centrilobular emphysema in the upper lobes bilaterally Abdomen Ultrasound 10/08/17 13:44 IMPRESSION: NORMAL ABDOMINAL ULTRASOUND. KUB X-Ray 10/11/17 00:00 IMPRESSION: NO RADIOGRAPHIC EVIDENCE FOR ACUTE ABDOMINAL DISEASE. WELL-DEMARCATED EXPANSILE LESION LEFT SUPERIOR PUBIC RAMUS MOST LIKELY REPRESENTS A BENIGN BONE CYST OR ENCHONDROMA. RECOMMEND CORRELATION WITH PRIOR IMAGING IF AVAILABLE. CONSIDER FOLLOWUP OUTPATIENT CT OR MRI. Qualifiers PATEINT BEING DISCHARGED WITH ANY OF THE FOLLOWING DIAGNOSIS?: No Plan Time Spent: Greater than 30 Minutes
== END 2017-10-15 13:45 | disposition home or self-care (01) | DRG 178 ==
LOC: ER 13:10 → EH 17:32 → 3S 22:38
PROVIDERS: ADMIT Hospitalist; ATTEND Hospitalist
DX: A31.0 Pulmonary mycobacterial infection (principal); S22.41XA Multiple fractures of ribs, right side, initial encounter for closed fracture; E44.0 Moderate protein-calorie malnutrition; Z68.1 Body mass index [BMI] 19.9 or less, adult; E87.1 Hypo-osmolality and hyponatremia; F10.239 Alcohol dependence with withdrawal, unspecified; J13 Pneumonia due to Streptococcus pneumoniae; J14 Pneumonia due to Hemophilus influenzae; E86.0 Dehydration; D47.3 Essential (hemorrhagic) thrombocythemia; K59.01 Slow transit constipation; T36.6X5A Adverse effect of rifampicins, initial encounter; R10.9 Unspecified abdominal pain; R11.0 Nausea; W10.9XXA Fall (on) (from) unspecified stairs and steps, initial encounter; F17.210 Nicotine dependence, cigarettes, uncomplicated; Z79.2 Long term (current) use of antibiotics; Y93.9 Activity, unspecified; Y92.9 Unspecified place or not applicable; Z90.49 Acquired absence of other specified parts of digestive tract; Z82.49 Family history of ischemic heart disease and other diseases of the circulatory system; Z80.9 Family history of malignant neoplasm, unspecified
CPT/HCPCS: 36415; 71260; 74000; 76700; 80048; 80053; 83735; 84100; 85025; 86403; 86701; 87015; 87040; 87070; 87077; 87101; 87116; 87186; 87205; 87206; 94799; 96374; 96375; 96376; 99285; J1170; J1956; J2060; J2270; J2550; J3490; J7030; S0119; S0164

== ENCOUNTER 2018-04-05 12:51 | Emergency (ER) | payer SELFPAY ==
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
[2018-04-05 14:12] LABS: ABSOLUTE BASOPHILS # (AUTO) 0.1 10^3/uL (0.0-0.2); ABSOLUTE EOSINOPHILS # (AUTO) 0.3 10^3/uL (0.0-0.6); ABSOLUTE LYMPHOCYTES (AUTO) 3.3 10^3/uL (0.5-4.7); ABSOLUTE MONOCYTES (AUTO) 0.8 10^3/uL (0.1-1.4); ABSOLUTE NEUT (AUTO) 5.5 10^3/uL (1.7-8.2); EOSINOPHILS % (AUTO) 2.6 % (0-6); HEMATOCRIT 46.1 % (37.9-51.0); LYMPHOCYTES % (AUTO) 33.4 % (13-45); MEAN CORPUSCULAR HEMOGLOBIN 30.6 pg (27.0-33.4); MEAN CORPUSCULAR HGB CONC 32.4 g/dL (32.0-36.0); MEAN CORPUSCULAR VOLUME 94 fl (80-97); MONOCYTES % (AUTO) 7.6 % (3-13); PLATELET COUNT 525 10^3/uL (150-450); RED BLOOD COUNT 4.89 10^6/uL (4.35-5.55); RED CELL DISTRIBUTION WIDTH 17.1 % (11.5-14.0); SEGMENTED NEUTROPHILS % (AUTO) 55.4 % (42-78); TOTAL CELLS COUNTED % (AUTO) 100 %
--- NOTE | 2018-04-05 14:13 | RADIOLOGY REPORT (SQ) ---
EXAM DESCRIPTION: CHEST SINGLE VIEW COMPLETED DATE/TIME: 04/05/2018 1:47 pm REASON FOR STUDY: COPD, possible overdose COMPARISON: AP chest 10/03/2017 CT chest 10/03/2017 EXAM PARAMETERS: NUMBER OF VIEWS: One view. TECHNIQUE: Single frontal radiographic view of the chest acquired. RADIATION DOSE: NA LIMITATIONS: None. FINDINGS: LUNGS AND PLEURA: The right upper lobe is abnormal. There is apical pleuroparenchymal sca rring and an ill-defined right upper lobe 2.3 cm nodule. Findings are worrisome for mycobacterial or fungal disease. Stable noncalcified nodules periphery left mid lung unchanged from CT 10/03/2017. No fluffy alveolar infiltrates worrisome for edema or pneumonia. No pleural effusions. No pneumothorax. MEDIASTINUM AND HILAR STRUCTURES: No masses. Contour normal. HEART AND VASCULAR STRUCTURES: Heart normal in size. Normal vasculature. BONES: No acute findings. HARDWARE: None in the chest. OTHER: No other significant finding. IMPRESSION: Abnormal right upper lobe with postinflammatory nodules and scarring. Most likely repre sents mycobacterium avium complex. Cavitary lesion right lung apex seen 10/03/[address] has resolved. There is a 2.3 cm solid nodul e in the right lung apex today. TECHNICAL DOCUMENTATION: JOB ID: [id number]- All Rights Reserved Reading location - IP/workstation name: [email or web address]
[2018-04-05 14:19] LABS: ALANINE AMINOTRANSFERASE < 6 U/L (21-72); ALBUMIN 4.2 g/dL (3.5-5.0); ALKALINE PHOSPHATASE 96 U/L (38-126); ASPARTATE AMINO TRANSFERASE 37 U/L (17-59); BILIRUBIN,DIRECT 0.2 mg/dL (0.0-0.4); BILIRUBIN,TOTAL 0.2 mg/dL (0.2-1.3); BLOOD UREA NITROGEN 21 mg/dL (7-20); CALCIUM 9.3 mg/dL (8.4-10.2); CARBON DIOXIDE 11 mmol/L (22-30); CHLORIDE 110 mmol/L (98-107); CREATINE KINASE 54 U/L (55-170); GLUCOSE 259 mg/dL (75-110); POTASSIUM 3.8 mmol/L (3.6-5.0); TOTAL PROTEIN 7.3 g/dL (6.3-8.2)
[2018-04-05 14:21] LABS: ACETAMINOPHEN < 10 ug/mL (10-30); ALCOHOL < 10 mg/dL (NONE DETECTED)
[2018-04-05] MEDS ORDERED: NORMAL SALINE 1000 ML 1,000 ML IV ONE (14:27)
[2018-04-05 14:38] LABS: ANION GAP 27 (5-19)
[2018-04-05 14:44] LABS: SALICYLATE 20.1 mg/dL (2.0-20.0)
[2018-04-05 15:29] LABS: AMORPHOUS SEDIMENT,URINE TRACE /HPF; APPEARANCE,URINE SLIGHTLY-CLOUDY; BILIRUBIN,URINE NEGATIVE (NEGATIVE); COLOR,URINE YELLOW; GLUCOSE, URINE NEGATIVE (NEGATIVE); KETONES,URINE NEGATIVE (NEGATIVE); LEUKOCYTE ESTERASE,URINE NEGATIVE (NEGATIVE); NITRITE,URINE NEGATIVE (NEGATIVE); PROTEIN,URINE 100 mg/dL (NEGATIVE); URINE SPECIFIC GRAVITY 1.019; UROBILINOGEN,URINE NEGATIVE mg/dL (<2.0)
[2018-04-05 15:39] LABS: URINE AMPHETAMINES SCREEN NEGATIVE; URINE BARBITURATES SCREEN NEGATIVE; URINE BENZODIAZEPINES SCREEN NEGATIVE; URINE COCAINE SCREEN NEGATIVE; URINE MARIJUANA (THC) SCREEN UNCONFIRMED POSITIVE; URINE METHADONE SCREEN NEGATIVE; URINE PHENCYCLIDINE SCREEN NEGATIVE
--- NOTE | 2018-04-05 15:46 | RADIOLOGY REPORT (SQ) ---
EXAM DESCRIPTION: CT CHEST WITHOUT COMPLETED DATE/TIME: 04/05/2018 3:21 pm REASON FOR STUDY: Mycobacteria avium, R/O active disease COMPARISON: Chest CT 10/03/2017 TECHNIQUE: CT scan performed of the chest without intravenous contrast. Images reviewed with lung, soft tissue and bone windows. Reconstructed coronal and sagittal MPR images reviewed. All images st ored on PACS. All CT scanners at this facility use dose modulation, iterative reconstruction, and/or weight based d osing when appropriate to reduce radiation dose to as low as reasonably achievable (ALARA). [facility]: Dose Right [facility]: CareDose [facility]: Dose Right [facility]: Teradose 4D [facility]: [employer] RADIATION DOSE: CT Rad equipment meets quality standard of care and radiation dose reduction techniq ues were employed. CTDIvol: 5.5 mGy. DLP: 249 mGy-cm. mGy. LIMITATIONS: No technical limitations. FINDINGS: LUNGS AND PLEURA: Decreased airspace opacities involving the post VIII heel right middle l obe demonstrated on comparison imaging. The lungs are otherwise stable in appearance, again noting a right apical cavitary lesion measuring on the order of 5 cm in greatest dimension. Likewise, scatte red nodular densities are seen throughout the right upper lobe, right middle lobe, right lower lobe, and lingula ; these appear stable in the study interval. This is seen on a background of centrilobul ar emphysematous changes. HILAR AND MEDIASTINAL STRUCTURES: There are scattered small mediastinal lymph nodes. No masses. HEART AND VASCULAR STRUCTURES: Ascending aortic aneurysm, which appears stable given differences in t echnique. No pericardial effusion. UPPER ABDOMEN: No significant findings. Limited exam. THYROID AND OTHER SOFT TISSUES: No masses. No adenopathy. BONES: Healing fractures of the right posterolateral ribs 5 through 11 no acute fractures. . HARDWARE: None in the chest. OTHER: No other significant findings. IMPRESSION: Decreased airspace opacities involving the right lower lobe. Otherwise stable CT appear ance of the lungs demonstrating multiple nodular densities, in the right apical cavitary lesion, and centrilobular emphysematous changes. TECHNICAL DOCUMENTATION: JOB ID: [id number] Quality ID # [id number]: Final reports with documentation of one or more dose reduction techniques (e.g., Au tomated exposure control, adjustment of the mA and/or kV according to patient size, use of iterative reconstruction technique) 2010 [employer]- All Rights Reserved Reading location - IP/workstation name: [email or web address]
--- NOTE | 2018-04-05 15:51 | EKG REPORT ---
SEVERITY:- ABNORMAL ECG - WIDE COMPLEX TACHYCARDIA NONSPECIFIC IVCD WITH LAD : Confirmed by: Fabricio Angeles MD 05-Apr-2018 15:50:44
--- NOTE | 2018-04-05 15:53 | RADIOLOGY REPORT (SQ) ---
EXAM DESCRIPTION: CT HEAD WITHOUT COMPLETED DATE/TIME: 04/05/2018 3:36 pm REASON FOR STUDY: Near apnea COMPARISON: None. TECHNIQUE: Axial images acquired through the brain without intravenous contrast. Images reviewed wi th bone, brain and subdural windows. Images stored on PACS. All CT scanners at this facility use dose modulation, iterative reconstruction, and/or weight based d osing when appropriate to reduce radiation dose to as low as reasonably achievable (ALARA). [facility]: Dose Right [facility]: CareDose [facility]: Dose Right [facility]: Teradose 4D [facility]: [employer] RADIATION DOSE: CT Rad equipment meets quality standard of care and radiation dose reduction techniq ues were employed. CTDIvol: 53.2 mGy. DLP: 964 mGy-cm. mGy. LIMITATIONS: None. FINDINGS: VENTRICLES: Normal size and contour. CEREBRUM: No masses. No hemorrhage. No midline shift. No evidence for acute infarction. Normal gra y/white matter differentiation. No areas of low density in the white matter. CEREBELLUM: No masses. No hemorrhage. No alteration of density. No evidence for acute infarction. EXTRAAXIAL SPACES: No fluid collections. No masses. ORBITS AND GLOBE: No intra- or extraconal masses. Normal contour of globe without masses. CALVARIUM: No fracture. PARANASAL SINUSES: No fluid or mucosal thickening. SOFT TISSUES: No mass or hematoma. OTHER: No other significant finding. IMPRESSION: NORMAL BRAIN CT WITHOUT CONTRAST. EVIDENCE OF ACUTE STROKE: NO. COMMENT: Quality ID # [id number]: Final reports with documentation of one or more dose reduction techniques (e.g., Automated exposure control, adjustment of the mA and/or kV according to patient size, use of iterative reconstruction technique) TECHNICAL DOCUMENTATION: JOB ID: [id number] [employer]- All Rights Reserved Reading location - IP/workstation name: [email or web address]
[2018-04-05] MEDS ORDERED: THIAMINE HCL 100 MG TABLET PO ONE (15:57)
[2018-04-05] MEDS ORDERED: RINGERS SOLUTION,LACTATED 1,000 ML IV ONE ×2 (16:07→17:28)
[2018-04-05 16:44] LABS: FREE T3 4.03 pg/mL (2.77-5.27); FREE T4 (FREE THYROXINE) 1.04 ng/dL (0.78-2.19)
[2018-04-05 16:58] LABS: THYROID STIMULATING HORMONE 3.76 uIU/mL (0.47-4.68)
[2018-04-05 19:34] LABS: ABSOLUTE BASOPHILS # (AUTO) 0.1 10^3/uL (0.0-0.2); ABSOLUTE EOSINOPHILS # (AUTO) 0.1 10^3/uL (0.0-0.6); ABSOLUTE LYMPHOCYTES (AUTO) 1.9 10^3/uL (0.5-4.7); ABSOLUTE MONOCYTES (AUTO) 1.2 10^3/uL (0.1-1.4); ABSOLUTE NEUT (AUTO) 9.6 10^3/uL (1.7-8.2); BASOPHILS % (AUTO) 0.6 % (0-2); EOSINOPHILS % (AUTO) 0.4 % (0-6); HEMATOCRIT 40.8 % (37.9-51.0); HEMOGLOBIN 13.6 g/dL (13.5-17.0); LYMPHOCYTES % (AUTO) 14.8 % (13-45); MEAN CORPUSCULAR HEMOGLOBIN 30.5 pg (27.0-33.4); MEAN CORPUSCULAR HGB CONC 33.4 g/dL (32.0-36.0); MEAN CORPUSCULAR VOLUME 92 fl (80-97); MONOCYTES % (AUTO) 9.4 % (3-13); PLATELET COUNT 454 10^3/uL (150-450); RED BLOOD COUNT 4.46 10^6/uL (4.35-5.55); RED CELL DISTRIBUTION WIDTH 16.1 % (11.5-14.0); SEGMENTED NEUTROPHILS % (AUTO) 74.8 % (42-78); TOTAL CELLS COUNTED % (AUTO) 100 %; WHITE BLOOD COUNT 12.9 10^3/uL (4.0-10.5)
[2018-04-05 19:57] LABS: URINE AMPHETAMINES SCREEN NEGATIVE; URINE BARBITURATES SCREEN NEGATIVE; URINE BENZODIAZEPINES SCREEN NEGATIVE; URINE COCAINE SCREEN NEGATIVE; URINE MARIJUANA (THC) SCREEN UNCONFIRMED POSITIVE; URINE METHADONE SCREEN NEGATIVE; URINE PHENCYCLIDINE SCREEN NEGATIVE
[2018-04-05 20:13] LABS: ALANINE AMINOTRANSFERASE 20 U/L (21-72); ALBUMIN 3.5 g/dL (3.5-5.0); ALKALINE PHOSPHATASE 76 U/L (38-126); ASPARTATE AMINO TRANSFERASE 29 U/L (17-59); BILIRUBIN,DIRECT 0.3 mg/dL (0.0-0.4); BILIRUBIN,TOTAL 0.3 mg/dL (0.2-1.3); BLOOD UREA NITROGEN 18 mg/dL (7-20); CALCIUM 8.7 mg/dL (8.4-10.2); CHLORIDE 108 mmol/L (98-107); GLUCOSE 74 mg/dL (75-110); POTASSIUM 4.2 mmol/L (3.6-5.0); SODIUM 144.7 mmol/L (137-145); TOTAL PROTEIN 6.3 g/dL (6.3-8.2)
[2018-04-05 20:25] LABS: ANION GAP 9 (5-19)
[2018-04-05 20:26] LABS: CARBON DIOXIDE 28 mmol/L (22-30)
[2018-04-05 22:28] VITALS: BP 122/69
== END 2018-04-05 22:29 | disposition home or self-care (01) ==
LOC: ER 12:51
DX: R07.9 Chest pain, unspecified (principal); R45.851 Suicidal ideations; E87.2 Acidosis; F32.9 Major depressive disorder, single episode, unspecified; T39.091A Poisoning by salicylates, accidental (unintentional), initial encounter; R40.4 Transient alteration of awareness; F17.210 Nicotine dependence, cigarettes, uncomplicated; J44.9 Chronic obstructive pulmonary disease, unspecified
CPT/HCPCS: 93005; 99285; 96360; 96361; 36415; 87040; 84439; 80307 ×4; 82550; 83735; 84443; 85025; 80053; 81001; 84484; 84481; 83036; 71045; 70450; 71250; 93010; J7030; J7120